=== PATIENT | female | born 1950 | race African-American/Black ===

== ENCOUNTER 2020-07-29 02:14 | Outpatient (CLI) | payer MEDICARE, MEDICAID, SELFPAY ==
[2020-07-29 17:02] LABS: SARS-CoV-2 RNA PCR Negative
== END 2020-07-29 02:15 | disposition home or self-care (01) ==
LOC: ANHCOVIDDT 02:14
PROVIDERS: PCP Surgery
DX: Z01.812 Encounter for preprocedural laboratory examination (principal); Z11.59 Encounter for screening for other viral diseases
CPT/HCPCS: 87635; C9803; U0003

== ENCOUNTER 2020-07-31 09:27 | Outpatient (CLI) | payer MEDICARE, MEDICAID, SELFPAY ==
[2020-07-29 11:23] VITALS: BMI 25.7
--- NOTE | ~2020-07-31 | XR_ITS ---
EXAMINATION: XR myelogram spine cervical DATE: 07/31/2020 12:31 INDICATION: Cervical spine instability. Neck muscle spasm into the shoulders. TECHNIQUE: Informed consent was obtained from the patient. Risks and benefits including bleeding, infection, sp inal headache and nerve root injury were discussed with the patient. The patient agreed to proceed. Time out procedure was performed. Margin Analyst radiograph was obtained. An entry site was chosen at the L 2-L3 level. A right paracentral approach was used. Standard sterile prep was done with Betadine. E ntry site was infiltrated with 3 cc 1% lidocaine. A 3.5 22G spinal needle was then inserted into th e spinal canal. Spontaneous reflux of CSF was observed confirming intrathecal positioning. 10 mL Omni paque 300 were then injected into the thecal sac with intermittent fluoroscopic observation confirmin g intrathecal administration. Frontal, lateral and oblique fluoroscopic images of the cervical spine then acquired. The patient wa s then transferred to CT scan for spiral CT of the apical spine details of which will be dictated sep arately. Following this patient was transferred to the postoperative area for 2 hours of observation . There are no immediate complications. FINDINGS: Real-time fluoroscopy demonstrates the needle at the L2-L3 level. Abdomen images demonstrate contrast filling the lumbar thecal sac with transverse lucency at the level of L4-L5 likely corresponding to anterior compression from the disc and cephalad margin of the L5 vertebral body resulting from the 5 mm anterolisthesis of L4 on L5. Subsequent images demonstrate cephalad advancement of the contrast phuc rafia on first the thoracic and into the cervical spine. Her postoperative change of prior C4-C7 anteri or spinal fusion with anterior plate and screw fixation at each level and with bone graft cages at th e intervening disc spaces. No significant central canal stenosis appreciated on the anteroposterior o blique images. The lateral image is essentially nondiagnostic due to patient positioning. To prevent further dilution of the contrast bolus in the lateral for a high quality CT myelogram is likely to th e CT scanner rather than to continue with additional attempts at repositioning for a better lateral f luoroscopic image. Mild thoracic levoscoliosis with moderate spondylosis. IMPRESSION: 1. Successful fluoro-guided lumbar puncture for cervical myelogram. 2. Expected appearance of a C4-C7 anterior spinal fusion with no evident central canal stenosis. See subsequent CT myelogram report for further detail. Reviewed, dictated and finalized at location A. IMPRESSION: 1. Successful fluoro-guided lumbar puncture for cervical myelogram. 2. Expected appearance of a C4-C7 anterior spinal fusion with no evident centra l canal stenosis. See subsequent CT myelogram report for further detail.
--- NOTE | ~2020-07-31 | CT_ITS ---
EXAMINATION: CT cervical spine w con EXAM DATE: 07/31/2020 12:14 INDICATION: Cervical spine instability. TECHNIQUE: Spiral CT of the cervical spine was performed following intrathecal injection of 10 mL Omn ipaque 300 solution. Axial images were reviewed. Coronal and sagittal reformatted images were also reviewed. The dose-length product (DLP) for this examination was 417.96 mGy-cm. The exposure was kane lored according to patient size (auto mA exposure control), and iterative reconstruction (ASIR) was u sed as additional dose reduction technique. There is no prior study for comparison. FINDINGS: There is anterior and interbody fusion C4-C7. Mild to moderate disc disease at C2-3 and C3 -4. There is good intrathecal opacification. Cord is being flattened at the C3-4 level, but there is still CSF space, contrast surrounding at both anteriorly and posteriorly, probably chronic mass effec t from disc bulge. The odontoid process is intact. The lateral masses of C1 line up with C2. Lung ap ices unremarkable. Level by level evaluation: C2-C3: Disc does not extend beyond the endplate margin. Uncovertebral joint arthropathy: Mild left. Facet joint arthropathy: Mild bilateral. Neural foraminal stenosis: No stenosis. Central canal stenosis: No stenosis. C3-C4: There is a mild to moderate diffuse disc bulge. Uncovertebral joint arthropathy: Mild to moderate right, mild left. Facet joint arthropathy: Moderate bilateral. Neural foraminal stenosis: Moderate right, mild left. Central canal stenosis: Mild to moderate . Central canal measures 7 mm in mid sagittal AP diameter . C4-C5: This level is fused. Uncovertebral joint arthropathy: Mild to moderate left, mild right. Facet joint arthropathy: Fused. Neural foraminal stenosis: Mild to moderate bilateral. Central canal stenosis: No stenosis. C5-C6: This level is fused. Uncovertebral joint arthropathy: Moderate bilateral. Facet joint arthropathy: Fused. Neural foraminal stenosis: Moderate left, mild right. Central canal stenosis: No stenosis. C6-C7: This level is fused. Uncovertebral joint arthropathy: Moderate bilateral. Facet joint arthropathy: Fused. Neural foraminal stenosis: Mild to moderate bilateral. Central canal stenosis: No stenosis. C7-T1: There is a mild diffuse disc bulge. Uncovertebral joint arthropathy: Mild to moderate. Facet joint arthropathy: Mild to moderate. Neural foraminal stenosis: Mild bilateral. Central canal stenosis: No stenosis. IMPRESSION: 1. Some cord flattening at the C3-4 level, probably from chronic mass effect of disc bulge, but stil l CSF space surrounding the cord. 2. Intact fusion C4-C7. 3. Cervical spondylosis as detailed above. Reviewed, dictated and finalized at location A. IMPRESSION: 1. Some cord flattening at the C3-4 level, probably from chronic mass effect o f disc bulge, but still CSF space surrounding the cord. 2. Intact fusion C4-C7. 3. Cervical spondylosis as detailed above.
[2020-07-31 10:54] LABS: Basophils Percent Auto 0.2 % (0.2-1.2); Eosinophils Absolute Auto 0.7 K/mm3 (0-0.3); Eosinophils Percent Auto 7.9 % (0-4.4); Hematocrit 35.8 % (37.0-47.0); Hemoglobin 11.7 g/dL (12.0-15.0); Immature Granulocyte Absolute 0.03 K/mm3 (0.00-0.031); Immature Granulocyte Percent A 0.3 % (0-0.5); Lymphocytes Absolute Auto 2.91 K/mm3 (0.9-3.2); Lymphocytes Percent Auto 33.9 % (18.3-44.2); Mean Corpuscular HGB Conc 32.7 g/dl (32-36); Mean Corpuscular Hemoglobin 29.5 pg (26-34); Mean Corpuscular Volume 90.2 fl (80-100); Mean Platelet Volume 9.1 fl (7.4-10.4); Monocytes Absolute Auto 0.5 K/mm3 (0.1-0.6); Monocytes Percent Auto 5.5 % (2.6-8.5); Neutrophils Absolute Auto 4.5 K/mm3 (1.3-6.7); Neutrophils Percent Auto 52.2 % (45.5-73.1); Platelet Count Result 354 k/mm3 (150-375); Red Blood Count 3.97 M/mm3 (4.2-5.4); Red Cell Distribution Width 13.2 % (11.5-14.5); White Blood Count 8.6 K/mm3 (4.5-10.0)
[2020-07-31 11:11] LABS: Prothrombin Time 12.5 Seconds (11.1-14.7)
[2020-07-31 12:15] VITALS: BP 108/47; PULSE 62; RESP 18; TEMP 36.4; O2SAT 100
[2020-07-31 12:26] VITALS: BP 117/63; PULSE 63; RESP 12; O2SAT 99
[2020-07-31 12:28] VITALS: BP 114/54; PULSE 63; RESP 12; O2SAT 99
[2020-07-31 12:38] LABS: Glucose Point of Care 112 (65-105)
--- NOTE | 2020-07-31 12:50 | SUR.PHASEII ---
1215; PT INTO [facility] FROM RADIOLOGY PER STRETCHER, PT LAYING ON RT SIDE. HOB FLAT. PT HAS NO IV. STATES PAIN 01/28.
--- NOTE | 2020-07-31 13:00 | SUR.PHASEII ---
1245; PT REQUESTING TYLENOL FOR BACK ACHE. [id number]; CALLED DR GARCIA REGARDING TYLENOL.
[2020-07-31] MEDS: ACETAMINOPHEN 325 MG TABLET 650 MG PO (13:09)
[2020-07-31 13:15] VITALS: BP 116/45; PULSE 64; RESP 18
[2020-07-31 14:08] VITALS: BP 108/55; PULSE 64; RESP 16
--- NOTE | 2020-07-31 14:26 | SUR.PHASEII ---
1405; PT AWAKE AND ALERT. DENIES HEADACHE. STATES READY TO GO HOME. MEETS DISCHARGE CRITERIA. 1408; CALLED DR GARCIA. LEFT MESSAGE ON UPDATE OF PT.
--- NOTE | 2020-07-31 14:28 | SUR.PHASEII ---
DR GARCIA HERE. UPDATED ON PT DISCHARGED HOME. NO HEADACHE. FEELING WELL.
== END 2020-07-31 09:28 | disposition home or self-care (01) ==
PROVIDERS: Radiology Diagnostic Radiology; PCP Physician Assistant
DX: M53.2X2 Spinal instabilities, cervical region (principal); M47.812 Spondylosis without myelopathy or radiculopathy, cervical region; M62.830 Muscle spasm of back; Z98.1 Arthrodesis status
CPT/HCPCS: 36415; 62302; 72126; 85025; 85610; Q9967

== ENCOUNTER 2023-09-14 09:56 | Outpatient (CLI) | payer MEDICARE, MEDICAID, SELFPAY | END 2023-09-14 09:57 | disposition home or self-care (01) | LOC: ANHAUDASC 09:57 | PROVIDERS: PCP Physician Assistant; Visit Provider Otolaryngology | DX: H90.3 Sensorineural hearing loss, bilateral (principal) | CPT/HCPCS: 92557; 92567 ==

== ENCOUNTER 2024-06-22 13:15 | Emergency (ER) | payer MEDICARE, MEDICAID, SELFPAY ==
--- NOTE | ~2024-06-22 | CT_ITS ---
EXAMINATION: CT abdomen pelvis w con DATE: 06/22/2024 17:58 INDICATION: Diffuse abdominal pain TECHNIQUE: Computed tomography (CT) of the abdomen and pelvis was performed with 100 mL Omnipaque-350 intravenous contrast. Automated exposure control and iterative reconstruction technique were employe d. The dose-length product was 430.46 mGy-cm. COMPARISON: None FINDINGS: Calcified right lower lobe nodule, calcified right hilar lymph node along with a few small hepatic an d splenic calcific lesions, all consistent with old granulomatous disease. Heart size is normal. Athe rosclerotic coronary artery calcifications. No pericardial or pleural effusion. Gallbladder, bilatera l adrenal glands and kidneys are normal. Small dystrophic calcification at the head of the pancreas l ikely sequela of chronic pancreatitis. There is mild colonic diverticulosis with a sigmoid predominan ce. There is no adjacent inflammatory change to suggest diverticulitis. No bowel obstruction. Bladde r is normal. The uterus is not identified and has likely been surgically resected. Bilateral adnexa a re unremarkable. No free intraperitoneal gas or fluid. No pathologically enlarged abdominal or pelvic lymphadenopathy. Symmetric bands of soft tissue density in the subcutaneous tissues of the anterior abdominal wall extending along the outline suggesting scarring or cellulitis. Moderate lumbar and low er thoracic spondylosis. Left total hip arthroplasty. IMPRESSION: 1. No acute intra-abdominal/pelvic process. Reviewed, dictated and finalized at location A.
[2024-06-22 13:19] VITALS: BP 90/43; PULSE 63; RESP 18; TEMP 36.3; O2SAT 99
--- NOTE | 2024-06-22 14:02 | ED.GENADULT ---
HPI - General Adult General Chief complaint: Abdominal Pain <Cj Chatman APRN - Last Filed: 06/22/24 14:06> Stated complaint: abd pain <Cj Chatman APRN - Last Filed: 06/22/24 14:06> Time Seen by Provider: 06/22/24 14:02 <Cj Chatman APRN - Last Filed: 06/22/24 14:06> Patient presents with nausea and generalized abdominal pain that started today. patient states she was diagnosed with a uti last tuesday and finished her cipro yesterday. patient was having CN and took magnesium citrate yesterday with some success but patient is now having symptoms. patient also states her BS have been running high. PE: A&OX3, BS non-labored, HR RRR with no murmur, generalized tenderness to abdomen, moving all extremities <Cj Chatman APRN - Last Filed: 06/22/24 14:06> Related Data Home medications: Home Medications Medication Instructions Recorded Confirmed aspirin 81 mg tablet,delayed 81 mg PO DAILY 07/29/20 07/29/20 release atorvastatin 20 mg tablet 20 mg PO HS 07/29/20 07/29/20 calcium carbonate (Calcium 600) 600 mg PO DAILY 07/29/20 07/29/20 cholecalciferol (vitamin D3) 25 75 mcg PO 2XW 07/29/20 07/29/20 mcg (1,000 unit) capsule (Vitamin D3) cyanocobalamin (vitamin B-12) 3,000 mcg PO 2XW 07/29/20 07/29/20 1,000 mcg tablet (Vitamin B-12) insulin detemir U-100 100 unit/mL 40 unit subcut BID 07/29/20 07/29/20 (3 mL) subcutaneous pen (Levemir FlexTouch U-100 Insulin) lifitegrast 5 % eye drops in a 1 drp ophthalmic (eye) DIRECTED 07/29/20 07/29/20 dropperette (Xiidra) PRN Dry Eye(S) losartan 100 mg tablet 50 mg PO BID 07/29/20 07/29/20 metformin 500 mg tablet 500 mg PO BID 07/29/20 07/29/20 metoprolol succinate 50 mg 50 mg PO DAILY 07/29/20 07/29/20 tablet,extended release 24 hr multivitamin 1 tablet PO DAILY 07/29/20 07/29/20 omeprazole 10 mg capsule,delayed 10 mg PO DAILY 07/29/20 07/29/20 release potassium chloride 10 mEq 20 meq PO QPM 07/29/20 07/29/20 tablet,extended release spironolactone 50 mg tablet 50 mg PO DAILY 07/29/20 07/29/20 tizanidine 4 mg capsule 4 mg PO Q8H PRN Spasms 07/29/20 07/29/20 <Cj Chatman APRN - Last Filed: 06/22/24 14:06> Allergies/adverse reactions: Allergies Allergy/AdvReac Type Severity Reaction Status Date / Time No Known Allergies Allergy Verified 07/22/22 10:43 <Cj Chatman APRN - Last Filed: 06/22/24 14:06> Exam Narrative: APPEARANCE: No apparent distress. Head: atraumatic. EYES: EOMI, NOSE: Atraumatic NECK: Trachea midline RESPIRATORY: No increased rate of breathing clear auscultation CARDIOVASCULAR: RRR, ABDOMINAL: Non-distended soft nontender guarding rebound no CVA tenderness MUSCULOSKELETAl: No obvious deformities NEURO: Alert. Moving 4/4 extremities SKIN:: Warm, dry. Normal color PSYCHIATRIC: Normal affect <Sarthak Amos MD - Last Filed: 06/22/24 18:38> Course Vital Signs Vital signs: Vital Signs Temperature 97.4 F L 06/22/24 13:19 Pulse Rate 63 06/22/24 13:19 Respiratory Rate 18 06/22/24 13:19 Blood Pressure 90/43 L 06/22/24 13:19 Pulse Oximetry 99 06/22/24 13:19 Temperature 97.4 F L 06/22/24 13:19 Pulse Rate 63 06/22/24 13:19 Respiratory Rate 18 06/22/24 13:19 Blood Pressure 90/43 L 06/22/24 13:19 Pulse Oximetry 99 06/22/24 13:19 <Cj Chatman APRN - Last Filed: 06/22/24 14:06> Vital Signs Temperature 97.4 F L 06/22/24 13:19 Pulse Rate 63 06/22/24 13:19 Respiratory Rate 18 06/22/24 13:19 Blood Pressure 90/43 L 06/22/24 13:19 Pulse Oximetry 99 06/22/24 13:19 Temperature 97.4 F L 06/22/24 13:19 Pulse Rate 63 06/22/24 13:19 Respiratory Rate 18 06/22/24 13:19 Blood Pressure 90/43 L 06/22/24 13:19 Pulse Oximetry 99 06/22/24 13:19 <Sarthak Amos MD - Last Filed: 06/22/24 18:38> Medical Decision Making MDM Narrative Medical decision making narrative: -Course: 73-year-old femal
[2024-06-22 14:25] LABS: Hematocrit 28.4 % (37.0-47.0); Hemoglobin 9.3 g/dL (12.0-15.0); Mean Corpuscular HGB Conc 32.7 g/dl (32-36); Mean Corpuscular Hemoglobin 34.6 pg (26-34); Mean Corpuscular Volume 105.6 fl (80-100); Mean Platelet Volume 8.5 fl (7.4-10.4); Platelet Count Result 216 k/mm3 (150-375); Red Blood Count 2.69 M/mm3 (4.2-5.4); Red Cell Distribution Width 16.7 % (11.5-14.5)
[2024-06-22 14:31] LABS: Alanine Aminotransferase 53 U/L (6-35); Alkaline Phosphatase 128 U/L (38-126); Anion Gap 9 mmol/L (4-12); Aspartate Amino Transferase 46 U/L (14-36); Bilirubin,Total 0.6 mg/dL (0.2-1.3); Blood Urea Nitrogen 11 mg/dL (7-17); Calcium 9.1 mg/dL (8.4-10.2); Carbon Dioxide 25 mmol/L (22-30); Chloride 102 mmol/L (98-107); Estimated Glomerular Filt Rate > 60; Glucose 201 mg/dL (65-110); Lactic Acid Reflex 1.2 mmol/L (0.7-2.0); Lipase 169 U/L (23-300); Potassium 4.4 mmol/L (3.4-5.0); Sodium 136 mmol/L (137-145)
[2024-06-22 15:37] LABS: Band Neutrophils Percent 4 % (0-6); Eosinophils Absolute Manual 0.45 K/mm3 (0.02-0.50); Eosinophils Percent Manual 9 % (0-4); Metamyelocytes Percent 1 %; Monocytes Percent Manual 4 % (3-9); Neutrophils Percent Manual 40 % (46-73); Total Cells Counted 100
[2024-06-22 15:38] LABS: Macrocytosis 1+ (NORMAL); Platelet Estimate Adequate (Adequate); Schistocytes None Seen
[2024-06-22 15:39] LABS: Anisocytosis 1+
[2024-06-22] MEDS: SODIUM CHLORIDE 0.9% IV 1,000 ML 999 ML IV CONT ×2 (17:20→17:21)
[2024-06-22] MEDS: ONDANSETRON INJ 4 MG/2 ML VIAL IV PUSH (17:22)
[2024-06-22] MEDS: FAMOTIDINE 20 MG/2 ML VIAL IV PUSH (17:23)
[2024-06-22] MEDS: DICYCLOMINE HCL 10 MG CAPSULE 20 MG PO (17:24)
[2024-06-22 18:32] LABS: Add Urine Microscopic? NO; Appearance Urine Clear (Clear); Bilirubin Urine Negative (Negative); Blood Urine Negative (Negative); Color Urine Yellow (Yellow); Glucose Urine UA Negative (Negative); Ketones Urine Negative (Negative); Leukocyte Esterase Ur Negative LEU/UL (Negative); Nitrate Urine Negative (Negative); Protein Urine Negative (Negative); Specific Grav Ur 1.016 (1.001-1.035); Urobilinogen Urine 0.2 mg/dL (<2.0); pH Urine 6.5 (5.0-9.0)
[2024-06-22 19:00] VITALS: PULSE 64; RESP 18
[2024-06-22 19:15] VITALS: PULSE 64; RESP 19
== END 2024-06-22 19:37 | disposition home or self-care (01) ==
PROVIDERS: Nurse Practitioner Family; Emergency Provider Emergency Medicine; PCP Internal Medicine Gastroenterology
DX: R10.84 Generalized abdominal pain (principal); E11.9 Type 2 diabetes mellitus without complications; Z79.82 Long term (current) use of aspirin; Z79.4 Long term (current) use of insulin; Z79.84 Long term (current) use of oral hypoglycemic drugs; Z79.899 Other long term (current) drug therapy
CPT/HCPCS: 36415; 74177; 80053; 81003; 83605; 83690; 85025; 96361; 96374; 96375; 99284; A9270; J2405; J7030; Q9967

== ENCOUNTER 2024-08-15 07:19 | Emergency (ER) | payer MEDICARE, MEDICAID, SELFPAY ==
[2024-08-15] VITALS (22 sets, daily range): BP systolic 123–157; BP diastolic 63–72; PULSE 78; RESP 16; TEMP 37; O2SAT 97–100
--- NOTE | ~2024-08-15 | CT_ITS ---
CT abdomen pelvis wo con Ordering provider: Sarthak Amos MD History: 73 years Female with . Recurrent uti . Comparison: April 22, 2024 Technique: CT abdomen and pelvis without IV and without oral contrast. Automated exposure control and iterative reconstruction technique were employed. The dose-length product was 382.23 mGy-cm. Findings: VISUALIZED LOWER CHEST: Dependent atelectatic changes. Probable UPPER ABDOMINAL ORGANS: Liver: Normal. Gallbladder: Normal. Spleen: Normal. Stomach/duodenum: Normal. Pancreas: Normal. Adrenals: Normal. Kidneys: Tiny stone in the medial aspect of the left kidney midpole. Obstructive changes. PELVIC ORGANS: The bladder is not well-demonstrated due to artifacts. BOWEL AND MESENTERY: Colon: Diverticulosis with no evidence of diverticulitis. Fecal material noted in the colon suggestiv e of patient.The appendix is not well demonstrated. Small Bowel: Normal. No obstruction. Peritoneum/mesentery: No free air or free fluid. No mesenteric lymphadenopathy. RETROPERITONEUM: Mild atheromatous disease of the abdominal aorta. No retroperitoneal lymphadenopat hy. MUSCULOSKELETAL: Superficial soft tissues: Thickening of the anterior abdominal wall skin in the area of the pelvis is seen bilaterally. Clinical correlation advised. Otherwise, The superficial soft tissues are normal. Bones: Age appropriate degenerative changes of the spine. Left hip arthroplasty. Pubic symphysitis. B ilateral sacroiliitis. Levoscoliosis. IMPRESSION: 1. Tiny stone in the left kidney. 2. Constipation. 3. No evidence of appendicitis, diverticulitis or intestinal obstruction Reviewed, dictated and finalized at location A.
--- NOTE | ~2024-08-15 | XR_ITS ---
EXAMINATION: XR chest 1V DATE: 08/15/2024 08:30 INDICATION: Cough, fever, nausea and vomiting TECHNIQUE: frontal view of the chest was obtained. COMPARISON: None FINDINGS: The lungs are clear with no focal airspace opacities, pulmonary edema, pleural effusion or pneumothor ax. The cardiomediastinal silhouette is normal. Plain screw fixation for lower cervical anterior spin al fusion. Mild S-shaped thoracolumbar scoliosis with moderate to severe spondylosis. 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 IMPRESSION: 1. No acute cardiopulmonary disease. Reviewed, dictated and finalized at location A.
--- NOTE | 2024-08-15 07:46 | ECG_ITS ---
Test Date: 2024-08-15 07:52:31 Measurements Intervals [place] Rate: 70 P: 52 IN: 145 QRS: 54 QRSD: 84 T: 52 QT: 363 QTc: 392 Interpretive Statements SINUS RHYTHM NONSPECIFIC T-WAVE ABNORMALITY- ANTERIOR LEADS BASELINE ARTIFACT- I, III, AVL BORDERLINE ECG No previous ECG available for comparison Electronically Signed On 08-15-2024 08:31:57 CDT by Luis Gregg D.O.
[2024-08-15 08:04] LABS: Add Urine Microscopic? YES; Appearance Urine Cloudy (Clear); Bacteria Urine 4+ /hpf; Bilirubin Urine Negative (Negative); Blood Urine 3+ (Negative); Color Urine Yellow (Yellow); Glucose Urine UA Negative (Negative); Ketones Urine Negative (Negative); Leukocyte Esterase Ur Negative LEU/UL (Negative); Need Manual Microscopic Reviewed; Nitrate Urine Positive (Negative); Non Pathogenic Casts 0-2; Protein Urine 3+ mg/dL (Negative); RBC Urine >100 /hpf (0-2); Specific Grav Ur 1.014 (1.001-1.035); Squamous Epithelial Cell Urine None Seen /hpf (Few); WBC Urine >100 /hpf (0-3); pH Urine 6.5 (5.0-9.0)
[2024-08-15 08:45] LABS: Hematocrit 30.5 % (37.0-47.0); Hemoglobin 10.2 g/dL (12.0-15.0); Mean Corpuscular HGB Conc 33.4 g/dl (32-36); Mean Corpuscular Hemoglobin 35.1 pg (26-34); Mean Corpuscular Volume 104.8 fl (80-100); Mean Platelet Volume 8.6 fl (7.4-10.4); Platelet Count Result 185 k/mm3 (150-375); Red Blood Count 2.91 M/mm3 (4.2-5.4); Red Cell Distribution Width 16.6 % (11.5-14.5); White Blood Count 9.4 K/mm3 (4.5-10.0)
[2024-08-15 08:58] LABS: Alanine Aminotransferase 57 U/L (6-35); Albumin Level 3.9 g/dL (3.5-5.1); Alkaline Phosphatase 112 U/L (38-126); Anion Gap 8 mmol/L (4-12); Aspartate Amino Transferase 58 U/L (14-36); Bilirubin,Total 0.4 mg/dL (0.2-1.3); Blood Urea Nitrogen 13 mg/dL (7-17); Calcium 9.7 mg/dL (8.4-10.2); Carbon Dioxide 25 mmol/L (22-30); Chloride 105 mmol/L (98-107); Estimated CRCL calculation 46 ml/min; Estimated Glomerular Filt Rate > 60; Glucose 119 mg/dL (65-110); Lipase 209 U/L (23-300); Sodium 138 mmol/L (137-145)
[2024-08-15 09:08] LABS: Band Neutrophils Percent 5 % (0-6); Basophils Absolute Manual 0.09 K/mm3 (0.0-0.1); Basophils Percent Manual 1 % (0-1); Eosinophils Absolute Manual 0.09 K/mm3 (0.02-0.50); Eosinophils Percent Manual 1 % (0-4); Lymphocytes Absolute Manual 2.91 K/mm3 (1.1-4.5); Lymphocytes Percent Manual 31 % (18-44); Monocytes Absolute Manual 0.28 K/mm3 (0.1-0.90); Monocytes Percent Manual 3 % (3-9); Neutrophils Absolute Manual 6.01 K/mm3 (1.7-7.2); Neutrophils Percent Manual 59 % (46-73); Platelet Estimate Adequate (Adequate); Total Cells Counted 100
[2024-08-15 09:09] LABS: Anisocytosis 1+; Hypochromasia 1+; Macrocytosis 1+ (NORMAL); Ovalocytes 1+; Schistocytes None Seen
[2024-08-15 09:22] LABS: Influenza A QL RT-PCR Negative (Negative); Influenza B QL RT-PCR Negative (Negative); RSV RNA, RT-PCR Negative (Negative); SARS-CoV-2 RNA PCR Negative (Negative)
[2024-08-15] MEDS: HYDROmorphone HCL INJ (*CRX) 1 MG/ML SYR 0.5 MG IV PUSH (09:28)
--- NOTE | 2024-08-15 11:20 | ED.GENADULT ---
HPI - General Adult General Chief complaint: Urogenital-Female Stated complaint: lower abd pain Time Seen by Provider: 08/15/24 07:23 History of Present Illness HPI narrative: This is a 73-year-old female presenting with lower abdominal pain. Patient has been having urinary urgency frequency and dysuria for the last 2 days. She has also had an episode of nausea and vomiting and some lower abdominal pain. She denies any chest pain difficulty breathing. No falls. Patient has had several UTIs over the last several months. Related Data Home Medications Medication Instructions Recorded Confirmed aspirin 81 mg tablet,delayed 81 mg PO DAILY 07/29/20 07/29/20 release atorvastatin 20 mg tablet 20 mg PO HS 07/29/20 07/29/20 calcium carbonate (Calcium 600) 600 mg PO DAILY 07/29/20 07/29/20 cholecalciferol (vitamin D3) 25 75 mcg PO 2XW 07/29/20 07/29/20 mcg (1,000 unit) capsule (Vitamin D3) cyanocobalamin (vitamin B-12) 3,000 mcg PO 2XW 07/29/20 07/29/20 1,000 mcg tablet (Vitamin B-12) insulin detemir U-100 100 unit/mL 40 unit subcut BID 07/29/20 07/29/20 (3 mL) subcutaneous pen (Levemir FlexTouch U-100 Insulin) lifitegrast 5 % eye drops in a 1 drp ophthalmic (eye) DIRECTED 07/29/20 07/29/20 dropperette (Xiidra) PRN Dry Eye(S) losartan 100 mg tablet 50 mg PO BID 07/29/20 07/29/20 metformin 500 mg tablet 500 mg PO BID 07/29/20 07/29/20 metoprolol succinate 50 mg 50 mg PO DAILY 07/29/20 07/29/20 tablet,extended release 24 hr multivitamin 1 tablet PO DAILY 07/29/20 07/29/20 omeprazole 10 mg capsule,delayed 10 mg PO DAILY 07/29/20 07/29/20 release potassium chloride 10 mEq 20 meq PO QPM 07/29/20 07/29/20 tablet,extended release spironolactone 50 mg tablet 50 mg PO DAILY 07/29/20 07/29/20 tizanidine 4 mg capsule 4 mg PO Q8H PRN Spasms 07/29/20 07/29/20 Allergies Allergy/AdvReac Type Severity Reaction Status Date / Time No Known Allergies Allergy Verified 08/15/24 07:25 Exam Narrative: APPEARANCE: No apparent distress. Head: atraumatic. EYES: EOMI, NOSE: Atraumatic NECK: Trachea midline RESPIRATORY: No increased rate of breathing clear to auscultation CARDIOVASCULAR: RRR, no peripheral edema ABDOMINAL: Soft nontender no guarding or rebound no CVA tenderness MUSCULOSKELETAl: No obvious deformities NEURO: Alert. Moving 4/4 extremities SKIN:: Warm, dry. Normal color PSYCHIATRIC: Normal affect Course Vital Signs Vital signs: Vital Signs Temperature 98.6 F 08/15/24 07:21 Pulse Rate 78 08/15/24 07:21 Respiratory Rate 16 08/15/24 07:21 Blood Pressure 157/71 H 08/15/24 07:21 Pulse Oximetry 100 08/15/24 07:21 Oxygen Delivery Room Air 08/15/24 07:21 Temperature 98.6 F 08/15/24 07:21 Pulse Rate 78 08/15/24 07:21 Respiratory Rate 16 08/15/24 07:21 Blood Pressure 140/68 08/15/24 09:01 Pulse Oximetry 99 08/15/24 09:01 Oxygen Delivery Room Air 08/15/24 07:21 Medical Decision Making [facility] Narrative Medical decision making narrative: -Course: 73-year-old female presenting with urinary symptoms. Urine indicative of infection. Laboratory studies and imaging are unremarkable. Vital signs are stable. She was given a dose of ceftriaxone, fluid resuscitation pain control. On re-evaluation she is resting comfortably. She was able to walk around the emergency department with a steady gait. The patient is requesting admission unfortunately there is no indication for admission for a simple UTI. Patient will be discharged home on cefdinir. Given return precautions. -DDX includes but is not limited to: UTI pyelo infected stone sepsis dehydration -Independent interpretation of studies: White count 9.4. Hemoglobin 10.2 metabolic panel unremarkable urine indicative infection. Culture sent. CT reviewed Viral swabs negative Independent EKG interpretation: Rhythm [sinus], Rate [70], [place] -[normal], [place] -[normal], QRS [narrow], QTC [normal], T waves -[
[2024-08-15] MEDS: PHENAZOPYRIDINE HCL 100 MG TABLET 200 MG PO (11:30)
== END 2024-08-15 11:55 | disposition home or self-care (01) ==
PROVIDERS: Emergency Provider Emergency Medicine; PCP Internal Medicine Gastroenterology
DX: N39.0 Urinary tract infection, site not specified (principal); Z20.822 Contact with and (suspected) exposure to COVID-19; Z79.82 Long term (current) use of aspirin; Z79.4 Long term (current) use of insulin; Z79.84 Long term (current) use of oral hypoglycemic drugs; Z79.899 Other long term (current) drug therapy; R94.31 Abnormal electrocardiogram [ECG] [EKG]
CPT/HCPCS: 36415; 71045; 74176; 80053; 81001; 83690; 85025; 87077; 87086; 87088; 87186; 87637; 93005; 96365; 96375; 99284; A9270; J0696; J1170

== ENCOUNTER 2024-08-30 12:03 | Inpatient (IN) | payer MEDICARE, MEDICAID, SELFPAY ==
[2024-08-30] VITALS (10 sets, daily range): BP systolic 102–116; BP diastolic 51–64; PULSE 58–65; RESP 14–18; TEMP 36.7–36.9; O2SAT 99–100; BMI 24.5
--- NOTE | ~2024-08-30 | CT_ITS ---
CT of the Abdomen and Pelvis: Indication: Flank pain, UTI Technique: 2.5 mm axial scans were obtained through the abdomen and pelvis following intravenous adm inistration of 100 cc of Omnipaque 350. Dose reduction technique was used on this scan by utilizing a utomated exposure control and iterative reconstruction technique. The dose-length product (DLP) was 3 72.31 mGy-cm. COMPARISON: 08/15/2024 Findings: Scans through the lung bases noted minimal bilateral pleural effusions. The liver, spleen, pancreas, gallbladder, adrenals and kidneys are within normal limits. There are at herosclerotic calcifications of the aorta. No lymphadenopathy. No bowel obstruction or bowel wall thickening. There is no evidence to suggest acute appendicitis. Images through the pelvis are degraded by streak artifact from left hip arthroplasty. Urinary bladder unremarkable. No pelvic mass seen. No ascites. Impression: Minimal bilateral pleural effusions. No other significant findings. Reviewed, dictated and finalized at [facility]. Impression: Minimal bilateral pleural effusions. No other significant findings.
[2024-08-30 12:30] LABS: Hematocrit 26.7 % (37.0-47.0); Hemoglobin 9.3 g/dL (12.0-15.0); Mean Corpuscular HGB Conc 34.8 g/dl (32-36); Mean Corpuscular Hemoglobin 35.1 pg (26-34); Mean Corpuscular Volume 100.8 fl (80-100); Mean Platelet Volume 8.5 fl (7.4-10.4); Platelet Count Result 203 k/mm3 (150-375); Red Blood Count 2.65 M/mm3 (4.2-5.4); Red Cell Distribution Width 15.9 % (11.5-14.5); White Blood Count 14.1 K/mm3 (4.5-10.0)
--- NOTE | 2024-08-30 12:31 | ED.FEMALEGU ---
HPI - Female Genitourinary General Chief complaint: Urogenital-Female <Giovana Hrutado PA-C - Last Filed: 08/30/24 16:09> Stated complaint: UTI sx <Giovana Hurtado PA-C - Last Filed: 08/30/24 16:09> Time Seen by Provider: 08/30/24 12:07 <Giovana Hurtado PA-C - Last Filed: 08/30/24 16:09> Source: patient <PETE Solomon Last Filed: 08/30/24 16:09> Mode of arrival: EMS <PETE Solomon Last Filed: 08/30/24 16:09> Limitations: no limitations <PETE Solomon Last Filed: 08/30/24 16:09> History of Present Illness HPI Narrative: This is a 73-year-old female that presents to the emergency department for ongoing urinary symptoms. Reports she has been treated with 2 rounds of antibiotics with little relief. She has had ongoing bladder discomfort, nausea, decreased appetite. Also reports flank pain. Denies fevers or vomiting. <Giovana Hurtado PA-C - Last Filed: 08/30/24 16:09> Related Data Home medications: Home Medications Medication Instructions Recorded Confirmed aspirin 81 mg tablet,delayed 81 mg PO DAILY 07/29/20 07/29/20 release atorvastatin 20 mg tablet 20 mg PO HS 07/29/20 07/29/20 calcium carbonate (Calcium 600) 600 mg PO DAILY 07/29/20 07/29/20 cholecalciferol (vitamin D3) 25 75 mcg PO 2XW 07/29/20 07/29/20 mcg (1,000 unit) capsule (Vitamin D3) cyanocobalamin (vitamin B-12) 3,000 mcg PO 2XW 07/29/20 07/29/20 1,000 mcg tablet (Vitamin B-12) insulin detemir U-100 100 unit/mL 40 unit subcut BID 07/29/20 07/29/20 (3 mL) subcutaneous pen (Levemir FlexTouch U-100 Insulin) lifitegrast 5 % eye drops in a 1 drp ophthalmic (eye) DIRECTED 07/29/20 07/29/20 dropperette (Xiidra) PRN Dry Eye(S) losartan 100 mg tablet 50 mg PO BID 07/29/20 07/29/20 metformin 500 mg tablet 500 mg PO BID 07/29/20 07/29/20 metoprolol succinate 50 mg 50 mg PO DAILY 07/29/20 07/29/20 tablet,extended release 24 hr multivitamin 1 tablet PO DAILY 07/29/20 07/29/20 omeprazole 10 mg capsule,delayed 10 mg PO DAILY 07/29/20 07/29/20 release potassium chloride 10 mEq 20 meq PO QPM 07/29/20 07/29/20 tablet,extended release spironolactone 50 mg tablet 50 mg PO DAILY 07/29/20 07/29/20 tizanidine 4 mg capsule 4 mg PO Q8H PRN Spasms 07/29/20 07/29/20 <Giovana Hurtado PA-C - Last Filed: 08/30/24 16:09> Allergies/Adverse reactions: Allergies Allergy/AdvReac Type Severity Reaction Status Date / Time No Known Allergies Allergy Verified 08/15/24 07:25 <Giovana Hurtado PA-C - Last Filed: 08/30/24 16:09> Review of Systems Review of Systems: CONSTITUTIONAL: Denies fever GASTROINTESTINAL: Reports abdominal pain, nausea. Denies vomiting, or diarrhea. GENITOURINARY: Reports dysuria. Denies hematuria. MUSCULOSKELETAL: Reports back pain <Giovana Hurtado PA-C - Last Filed: 08/30/24 16:09> All systems reviewed & are unremarkable except as noted in HPI and below <Giovana Hurtado PA-C - Last Filed: 08/30/24 16:09> [facility] Past Medical History Medical History: Medical History (Updated 08/30/24 @ 16:01 by Giovana Hurtado PA-C) Diverticulitis Glaucoma Hyperlipidemia Hypertension Type 2 diabetes mellitus <Giovana Hurtado PA-C - Last Filed: 08/30/24 16:09> Surgical History Surgical History: Surgical History (Updated 08/30/24 @ 14:37 by Casi Mullen PA-C) History of bilateral cataract extraction History of cardiac catheterization (11/2019) ?negative? per patient report History of fusion of cervical spine (2019) C4-C7 History of hysterectomy History of total left hip arthroplasty <Giovana Hurtado PA-C - Last Filed: 08/30/24 16:09> Social History Social History: Social History (Updated 08/30/24 @ 14:38 by Casi Mullen PA-C) Social History: Surrogate medical decision maker: Code status: Full code. Substance use: never <Giovana Hurtado PA-C - Last Filed: 08/30/24 16:09> Exam Narrative: GEN
[2024-08-30 12:38] LABS: Add Urine Microscopic? YES; Appearance Urine Cloudy (Clear); Bacteria Urine 4+ /hpf; Bilirubin Urine Negative (Negative); Blood Urine Negative (Negative); Color Urine Yellow (Yellow); Glucose Urine UA Negative (Negative); Ketones Urine Negative (Negative); Leukocyte Esterase Ur 3+ LEU/UL (Negative); Nitrate Urine Positive (Negative); Protein Urine Negative (Negative); RBC Urine 0-2 /hpf (0-2); Specific Grav Ur 1.006 (1.001-1.035); Squamous Epithelial Cell Urine None Seen /hpf (Few); Urobilinogen Urine 0.2 mg/dL (<2.0); WBC Urine >100 /hpf (0-3)
[2024-08-30 12:43] LABS: Alanine Aminotransferase 29 U/L (6-35); Alkaline Phosphatase 93 U/L (38-126); Anion Gap 7 mmol/L (4-12); Aspartate Amino Transferase 37 U/L (14-36); Bilirubin,Total 0.4 mg/dL (0.2-1.3); Blood Urea Nitrogen 12 mg/dL (7-17); Calcium 9.5 mg/dL (8.4-10.2); Carbon Dioxide 27 mmol/L (22-30); Chloride 94 mmol/L (98-107); Estimated CRCL calculation 37 ml/min; Estimated Glomerular Filt Rate > 60; Glucose 145 mg/dL (65-110); Potassium 4.4 mmol/L (3.4-5.0); Sodium 128 mmol/L (137-145)
[2024-08-30 12:56] LABS: Band Neutrophils Percent 4 % (0-6); Eosinophils Absolute Manual 0.14 K/mm3 (0.02-0.50); Eosinophils Percent Manual 1 % (0-4); Lymphocytes Absolute Manual 4.08 K/mm3 (1.1-4.5); Lymphocytes Percent Manual 29 % (18-44); Monocytes Absolute Manual 0.98 K/mm3 (0.1-0.90); Monocytes Percent Manual 7 % (3-9); Neutrophils Absolute Manual 8.88 K/mm3 (1.7-7.2); Neutrophils Percent Manual 59 % (46-73)
[2024-08-30 12:57] LABS: Platelet Estimate Adequate (Adequate); Schistocytes None Seen
[2024-08-30 12:58] LABS: Anisocytosis 1+; Ovalocytes 1+
[2024-08-30] MEDS: SODIUM CHLORIDE 0.9% IV 500 ML 999 ML IV CONT (13:17)
[2024-08-30] MEDS: ONDANSETRON INJ 4 MG/2 ML VIAL IV PUSH (13:17)
[2024-08-30] MEDS: MEROPENEM 1 GM/NS 100 ML 1 GM/100 ML BAG IVPB ×2 (13:45→20:53)
--- NOTE | 2024-08-30 14:15 | PM.IMHP ---
H&P: HPI History of Present Illness Date/Time: 08/30/24 14:15 Chief Complaint: Urinary symptoms. Narrative: This is a pleasant 73-year-old female with history of urinary tract infections, hypertension, hyperlipidemia, and type 2 diabetes mellitus who presented to the emergency department via EMS from home for evaluation of urinary symptoms. The patient provides the following history. She was seen in the ED on 08/15/2024 with a 2 day history of urinary urgency, frequency, and dysuria and was diagnosed with a urinary tract infection for which she was prescribed cefdinir. She was given a course of ciprofloxacin after she completed the cefdinir as her symptoms had not resolved. Unfortunately she continues to have urinary symptoms and now has aching pain in the low back and abdomen. She also reports subjective fever, decrease in appetite, and nausea. She denies vomiting, diarrhea, and cold and flu symptoms. In the ED: She was afebrile on arrival with stable vital signs. Labs were significant for a WBC count of 14.1, hemoglobin 9.3, hematocrit 26.7%, MCV 100.3, sodium 128, potassium 94, glucose 145. Urinalysis was nitrate and leukocyte esterase positive with greater than 100 WBC and 4+ bacteria. CT of the abdomen pelvis showed minimal bilateral pleural effusions but no other significant findings. Urine culture obtained on the day of her ED visit grew out ESBL Escherichia coli and she has been started on meropenem and is being admitted in this setting for further treatment. Review of Systems Review of Systems: 12 systems were reviewed and are negative except for as per HPI. [facility] Past Medical History Medical History Diverticulitis Glaucoma Hyperlipidemia Hypertension Type 2 diabetes mellitus Surgical History Surgical History History of bilateral cataract extraction History of cardiac catheterization (11/2019) ?negative? per patient report History of fusion of cervical spine (2018) C4-C7 History of hysterectomy History of total left hip arthroplasty Social History Social History (Updated 08/30/24 @ 20:06 by Casi Mullen PA-C) Social History: Surrogate medical decision maker: Jaime Almonte, son ([phone]). Code status: Full code. Smoking status: Former smoker Tobacco type: cigarettes Smoking end date: 11/21/94 Alcohol intake: never Substance use: never Do You Feel Safe in your Home?: Yes Lack of Transportation: No Lack of Food: Never True Current Housing: Decline to Answer Concerned About Future Housing: Decline to Answer Difficulty Paying Gas/Electric Bills: Decline to Answer Difficulty Paying for Meds: Decline to Answer Currently Unemployed: Decline to Answer Education: Decline to Answer Difficulty w/ Childcare or Family Care: Decline to Answer Spiritual care concerns: No Meds Home Medications and Allergies Home Medications Medication Instructions Recorded Confirmed Type aspirin 81 mg tablet,delayed 81 mg PO DAILY 07/29/20 08/30/24 History release calcium carbonate (Calcium 600) 600 mg PO DAILY 07/29/20 08/30/24 History cholecalciferol (vitamin D3) 25 75 mcg PO 2XW 07/29/20 08/30/24 History mcg (1,000 unit) capsule (Vitamin D3) cyanocobalamin (vitamin B-12) 3,000 mcg PO 2XW 07/29/20 08/30/24 History 1,000 mcg tablet (Vitamin B-12) insulin detemir U-100 100 unit/mL 25 unit subcut BID 07/29/20 08/30/24 History (3 mL) subcutaneous pen (Levemir FlexTouch U-100 Insulin) lifitegrast 5 % eye drops in a 1 drp ophthalmic (eye) DIRECTED 07/29/20 08/30/24 History dropperette (Xiidra) PRN Dry Eye(S) losartan 100 mg tablet 25 mg PO BID 07/29/20 08/30/24 History multivitamin 1 tablet PO DAILY 07/29/20 08/30/24 History spironolactone 50 mg tablet 50 mg PO DAILY 07/29/20 08/30/24 History carvedilol 25 mg tablet 25 mg PO BID 08/30/24
[2024-08-30 14:56] LABS: Immature Reticulocyte Fraction 28.3 % (3.0-15.9); Reticulocyte Hemoglobin Conten 39.6 pg (28.2-36.6); Reticulocyte Percent 2.03 % (0.7-4.3); Reticulocytes Absolute 0.06 10^6/uL (0.02-0.10)
[2024-08-30 15:37] LABS: Iron 161 ug/dL (37-170)
[2024-08-30 15:43] LABS: Hemoglobin A1C 6.8 % (<5.7)
[2024-08-30 15:46] LABS: Percent Iron Saturation 43 % (20-50)
[2024-08-30 16:09] LABS: Thyroid Stimulating Hormone Reflex 0.648 uIU/mL (0.465-4.68)
[2024-08-30 16:40] LABS: Folic Acid 6.2 ng/mL (2.76->20); Vitamin B12 > 1000.0 pg/mL (239-931)
[2024-08-30 17:09] LABS: Creatinine Urine 13.2 mg/dL
[2024-08-30 17:15] LABS: Glucose Point of Care 116 mg/dl (65-105)
[2024-08-30 17:22] LABS: Sodium Urine Random 25 meq/L
[2024-08-30] MEDS: ACETAMINOPHEN 325 MG TABLET 650 MG PO (17:52)
--- NOTE | 2024-08-30 19:33 | PC.NURSE ---
Main school laboratory technician February verified that additional labs(osmolality and urea random) can and have been added to specimen received earlier today.
[2024-08-30 19:43] LABS: Glucose Point of Care 137 mg/dl (65-105)
[2024-08-30 20:20] LABS: Urea Random Urine 175 MG/DL
[2024-08-30 20:40] LABS: Anion Gap 9 mmol/L (4-12); Blood Urea Nitrogen 12 mg/dL (7-17); Carbon Dioxide 24 mmol/L (22-30); Chloride 98 mmol/L (98-107); Estimated CRCL calculation 37 ml/min; Estimated Glomerular Filt Rate > 60; Glucose 131 mg/dL (65-110); Potassium 4.4 mmol/L (3.4-5.0); Sodium 131 mmol/L (137-145)
[2024-08-30] MEDS: HYDROcodone/acetaminophen (*CRX) 5-325 MG TABLET 1 TAB PO (20:53)
[2024-08-30] MEDS: SODIUM CHLORIDE 0.9% IV 1,000 ML 80 ML IV CONT (20:53)
[2024-08-30] MEDS: SERTRALINE HCL 50 MG TABLET 100 MG PO (20:54)
[2024-08-30] MEDS: WATER FOR IRRIGATION, STERILE 1,000 ML BOTTLE 1000 ML (20:55)
[2024-08-31] VITALS (9 sets, daily range): BP systolic 111–135; BP diastolic 47–58; PULSE 65–76; RESP 12–18; TEMP 36.4–36.7; O2SAT 98–100; BMI 24.7
[2024-08-31 03:43] LABS: Glucose Point of Care 115 mg/dl (65-105)
[2024-08-31] MEDS: INSULIN GLARGINE (*BKC) 100 UNITS/ML 25 UNITS SUB-Q ×3 (05:11→22:57)
[2024-08-31 05:17] LABS: Hematocrit 26.7 % (37.0-47.0); Hemoglobin 8.8 g/dL (12.0-15.0); Mean Corpuscular Hemoglobin 34.2 pg (26-34); Mean Corpuscular Volume 103.9 fl (80-100); Mean Platelet Volume 8.5 fl (7.4-10.4); Platelet Count Result 210 k/mm3 (150-375); Red Blood Count 2.57 M/mm3 (4.2-5.4); Red Cell Distribution Width 16.7 % (11.5-14.5); White Blood Count 12.6 K/mm3 (4.5-10.0)
[2024-08-31 05:33] LABS: Anion Gap 6 mmol/L (4-12); Blood Urea Nitrogen 14 mg/dL (7-17); Carbon Dioxide 26 mmol/L (22-30); Chloride 102 mmol/L (98-107); Estimated CRCL calculation 41 ml/min; Estimated Glomerular Filt Rate > 60; Glucose 125 mg/dL (65-110); Potassium 4.1 mmol/L (3.4-5.0); Sodium 134 mmol/L (137-145)
[2024-08-31 05:44] LABS: Band Neutrophils Percent 5 % (0-6); Eosinophils Absolute Manual 0.12 K/mm3 (0.02-0.50); Eosinophils Percent Manual 1 % (0-4); Lymphocytes Absolute Manual 4.28 K/mm3 (1.1-4.5); Monocytes Percent Manual 4 % (3-9); Neutrophils Absolute Manual 7.68 K/mm3 (1.7-7.2); Neutrophils Percent Manual 56 % (46-73); Total Cells Counted 100
[2024-08-31 05:45] LABS: Anisocytosis 1+; Atypical Lymphocytes Present; Hypochromasia 1+; Platelet Estimate Adequate (Adequate); Poikilocytosis 1+; Schistocytes None Seen
[2024-08-31 08:58] LABS: Glucose Point of Care 112 mg/dl (65-105)
[2024-08-31] MEDS: MULTIVITAMINS THERAPEUTIC TAB (*BKC) 1 TABLET PO (09:04)
[2024-08-31] MEDS: CALCIUM CARBONATE (OSCAL) 500 MG TABLET PO (09:04)
[2024-08-31] MEDS: ASPIRIN 81 MG ENTERIC TABLET PO (09:04)
[2024-08-31] MEDS: EZETIMIBE 10 MG TABLET PO (09:04)
[2024-08-31] MEDS: MEROPENEM 1 GM/NS 100 ML 1 GM/100 ML BAG IVPB ×2 (09:04→22:57)
[2024-08-31] MEDS: LOSARTAN POTASSIUM 25 MG TABLET PO (09:04)
[2024-08-31] MEDS: FAMOTIDINE 10 MG TABLET PO (09:04)
[2024-08-31] MEDS: hydrALAZINE HCL 50 MG TABLET PO (09:04)
[2024-08-31] MEDS: MONTELUKAST SODIUM 10 MG TABLET PO (09:04)
[2024-08-31] MEDS: carvediloL 25 MG TABLET PO ×2 (09:06→22:58)
[2024-08-31] MEDS: SODIUM CHLORIDE 0.9% IV 1,000 ML 80 ML IV CONT (09:18)
[2024-08-31] MEDS: ENOXAPARIN 40 MG/0.4 ML SYRINGE SUB-Q (09:21)
--- NOTE | 2024-08-31 10:08 | PM.IMPN ---
Progress Note: A&P Assessment and Plan (1) Urinary tract infection due to extended-spectrum beta lactamase (ESBL) producing Escherichia coli: Code(s): N39.0 - Urinary tract infection, site not specified; B96.29 - Other Escherichia coli [E. coli] as the cause of diseases classified elsewhere; Z16.12 - Extended spectrum beta lactamase (ESBL) resistance Status: Acute Assessment and Plan: Patient reports having UTI's since the end of May, despite completing courses of cefdinir and ciprofloxacin. Urine culture obtained at the time for ED visit on 08/15/2024 grew out ESBL Escherichia coli resistant to cephalosporins and fluoroquinolones. She has been started on meropenem per antibiotic stewardship recommendations. Patient is receiving Meropenem 1 gm IVPB q12. NS @ 125 ml/hr. Drink water Urine and blood cultures pending. (2) Hyponatremia: Code(s): E87.1 - Hypo-osmolality and hyponatremia Status: Acute Assessment and Plan: sodium 134 (3) Macrocytic anemia: Code(s): D53.9 - Nutritional anemia, unspecified Status: Acute Assessment and Plan: Hemoglobin 8.8, hematocrit 26.7 (4) Type 2 diabetes mellitus: Code(s): E11.9 - Type 2 diabetes mellitus without complications Status: Acute Assessment and Plan: Hold metformin as she received IV contrast. Sliding scale insulin, long acting insulin, Accu-Cheks, and hypoglycemic protocol. (5) Hypertension: Code(s): I10 - Essential (primary) hypertension Status: Acute Assessment and Plan: Blood pressure 112/49 (6) Constipation: Code(s): K59.00 - Constipation, unspecified Status: Acute Assessment and Plan: Add Miralax 17 gm PO daily PRN and Dulcolax 5 mg PO daily PRN. Encourage water intake. (7) Dizziness: Code(s): R42 - Dizziness and giddiness Status: Acute Assessment and Plan: Check orthostatics. NS@ 125 ml/hr. Subjective Date/time seen: 08/31/24 10:08 Interval history: Patient denies chest pain, palpitations, headache, burning with urination, nausea, or vomiting. Patient reports last bowel movement was 3 days ago and she would like medication ordered for her bowels. Patient reports eating and drinking well. Patient reports some dizziness when getting up. Review of Systems Review of Systems: All systems reviewed & are unremarkable except as noted in HPI and below Exam Const: General: comfortable and no acute distress Neck: Neck: supple Resp: Effort & Inspection: normal respiratory effort Auscultation: clear to auscultation bilaterally Cardio: Rate: regular rate Rhythm: regular rhythm GI: GI Palp: Yes Soft to palpation Auscultation: normal bowel sounds Other: No CVA tenderness. Skin: General skin exam: no rashes or lesions noted Neuro: Speech: normal speech Extrem: General: normal to inspection Psych: Affect: normal affect Objective Data Vital Signs Vital Signs: Vital Signs - 24 hr 08/30/24 12:04 08/30/24 14:29 08/30/24 13:00 Temperature 98.1 F Pulse Rate 65 58 L Respiratory Rate 16 18 Blood Pressure 116/64 114/60 Pulse Oximetry 100 99 Oxygen Delivery Room Air 08/30/24 14:00 08/30/24 15:00 08/30/24 16:00 Temperature Pulse Rate 59 L 61 60 Respiratory Rate 16 16 16 Blood Pressure 112/53 L 109/54 L 114/52 L Pulse Oximetry 100 100 100 Oxygen Delivery 08/30/24 17:00 08/30/24 18:29 08/30/24 20:00 Temperature 98.5 F Pulse Rate 63 64 Respiratory Rate 18 18 Blood Pressure 109/57 L 102/51 L Pulse Oximetry 99 99 Oxygen Delivery Room Air 08/30/24 21:29 08/30/24 22:00 08/30/24 20:00 Temperature 98.5 F Pulse Rate 64 Respiratory Rate 18 14 Blood Pressure 102/51 L Pulse Oximetry 99 Oxygen Delivery Autopap Room Air 08/31/24 02:45 08/31/24 05:35 08/31/24 09:06 Temperature 98.1 F Pulse Rate 65 70 Respiratory Rate 12 18 Blood Pressure 111/47
[2024-08-31 10:43] LABS: Glucose Point of Care 142 mg/dl (65-105)
[2024-08-31 11:30] LABS: Glucose Point of Care 137 mg/dl (65-105)
[2024-08-31] MEDS: polyethylene glycoL 3350 17 GM POWD.PACK PO (13:30)
[2024-08-31 17:01] LABS: Glucose Point of Care 140 mg/dl (65-105)
[2024-08-31] MEDS: SODIUM CHLORIDE 0.9% IV 1,000 ML 100 ML IV CONT (18:04)
[2024-08-31] MEDS: SERTRALINE HCL 50 MG TABLET 100 MG PO (22:59)
[2024-08-31 23:05] LABS: Glucose Point of Care 113 mg/dl (65-105)
[2024-08-31] MEDS: MORPHINE SULFATE (*CRX) 2 MG/ML INJ IV PUSH (23:11)
[2024-09-01] MEDS: SODIUM CHLORIDE 0.9% IV 1,000 ML 100 ML IV CONT (04:01)
[2024-09-01 05:39] VITALS: BP 132/60; PULSE 72; RESP 18; TEMP 36.4; O2SAT 98
[2024-09-01 06:04] LABS: Mean Corpuscular HGB Conc 33.3 g/dl (32-36); Mean Corpuscular Hemoglobin 34.8 pg (26-34); Mean Corpuscular Volume 104.3 fl (80-100); Mean Platelet Volume 8.5 fl (7.4-10.4); Platelet Count Result 200 k/mm3 (150-375); Red Cell Distribution Width 16.9 % (11.5-14.5); White Blood Count 11.9 K/mm3 (4.5-10.0)
[2024-09-01 06:16] LABS: Alanine Aminotransferase 39 U/L (6-35); Albumin Level 3.2 g/dL (3.5-5.1); Alkaline Phosphatase 89 U/L (38-126); Anion Gap 7 mmol/L (4-12); Aspartate Amino Transferase 45 U/L (14-36); Bilirubin,Total 0.4 mg/dL (0.2-1.3); Blood Urea Nitrogen 9 mg/dL (7-17); Calcium 8.8 mg/dL (8.4-10.2); Carbon Dioxide 24 mmol/L (22-30); Chloride 106 mmol/L (98-107); Estimated CRCL calculation 60 ml/min; Estimated Glomerular Filt Rate > 60; Glucose 83 mg/dL (65-110); Potassium 3.9 mmol/L (3.4-5.0); Sodium 137 mmol/L (137-145)
[2024-09-01 06:32] LABS: Band Neutrophils Percent 15 % (0-6); Basophils Absolute Manual 0.11 K/mm3 (0.0-0.1); Basophils Percent Manual 1 % (0-1); Eosinophils Absolute Manual 0.11 K/mm3 (0.02-0.50); Eosinophils Percent Manual 1 % (0-4); Lymphocytes Absolute Manual 3.57 K/mm3 (1.1-4.5); Lymphocytes Percent Manual 30 % (18-44); Monocytes Absolute Manual 0.47 K/mm3 (0.1-0.90); Monocytes Percent Manual 4 % (3-9); Neutrophils Absolute Manual 7.73 K/mm3 (1.7-7.2); Neutrophils Percent Manual 50 % (46-73); Total Cells Counted 100
[2024-09-01 06:33] LABS: Macrocytosis 2+ (NORMAL); Platelet Estimate Adequate (Adequate); Schistocytes None Seen
[2024-09-01 08:34] LABS: Glucose Point of Care 83 mg/dl (65-105)
[2024-09-01 09:36] VITALS: PULSE 77
[2024-09-01] MEDS: ASPIRIN 81 MG ENTERIC TABLET PO (09:36)
[2024-09-01] MEDS: FAMOTIDINE 10 MG TABLET PO (09:36)
[2024-09-01] MEDS: carvediloL 25 MG TABLET PO ×2 (09:36→21:55)
[2024-09-01] MEDS: CALCIUM CARBONATE (OSCAL) 500 MG TABLET PO (09:36)
[2024-09-01] MEDS: MULTIVITAMINS THERAPEUTIC TAB (*BKC) 1 TABLET PO (09:36)
[2024-09-01] MEDS: ENOXAPARIN 40 MG/0.4 ML SYRINGE SUB-Q (09:37)
[2024-09-01] MEDS: EZETIMIBE 10 MG TABLET PO (09:37)
[2024-09-01] MEDS: MONTELUKAST SODIUM 10 MG TABLET PO (09:37)
[2024-09-01] MEDS: INSULIN GLARGINE (*BKC) 100 UNITS/ML 25 UNITS SUB-Q ×2 (09:45→21:57)
[2024-09-01] MEDS: MORPHINE SULFATE (*CRX) 2 MG/ML INJ IV PUSH ×2 (11:22→21:54)
[2024-09-01] MEDS: BISACODYL 5 MG TABLET EC PO (11:22)
[2024-09-01] MEDS: MEROPENEM 1 GM/NS 100 ML 1 GM/100 ML BAG IVPB ×2 (11:22→21:55)
--- NOTE | 2024-09-01 11:29 | PM.IMPN ---
Progress Note: A&P Assessment and Plan (1) Urinary tract infection due to extended-spectrum beta lactamase (ESBL) producing Escherichia coli: Code(s): N39.0 - Urinary tract infection, site not specified; B96.29 - Other Escherichia coli [E. coli] as the cause of diseases classified elsewhere; Z16.12 - Extended spectrum beta lactamase (ESBL) resistance Status: Acute Assessment and Plan: Patient reports having UTI's since the end of May, despite completing courses of cefdinir and ciprofloxacin. Urine culture obtained at the time for ED visit on 08/15/2024 grew out ESBL Escherichia coli resistant to cephalosporins and fluoroquinolones. She has been started on meropenem per antibiotic stewardship recommendations. Patient is receiving Meropenem 1 gm IVPB q12. Drink water Urine culture showed Escherichia Coli blood cultures pending. (2) Hyponatremia: Code(s): E87.1 - Hypo-osmolality and hyponatremia Status: Acute Assessment and Plan: sodium 137, improved. (3) Macrocytic anemia: Code(s): D53.9 - Nutritional anemia, unspecified Status: Acute Assessment and Plan: Hemoglobin 8, hematocrit 24 Monitor labs. (4) Type 2 diabetes mellitus: Code(s): E11.9 - Type 2 diabetes mellitus without complications Status: Acute Assessment and Plan: Hold metformin as she received IV contrast. Sliding scale insulin, long acting insulin, Accu-Cheks, and hypoglycemic protocol. (5) Hypertension: Code(s): I10 - Essential (primary) hypertension Status: Acute Assessment and Plan: Blood pressure 132/60 (6) Constipation: Code(s): K59.00 - Constipation, unspecified Status: Acute Assessment and Plan: Add Miralax 17 gm PO daily PRN and Dulcolax 5 mg PO daily PRN. Encourage water intake. Subjective Date/time seen: 09/01/24 11:29 Interval history: Patient denies chest pain, palpitations, headache, burning with urination, nausea, or vomiting. Patient reports last bowel movement was 3 days ago, medication ordered for her bowels. Patient reports eating and drinking well. Review of Systems Review of Systems: All systems reviewed & are unremarkable except as noted in HPI and below Exam Const: General: comfortable and no acute distress Eyes: Sclera: sclerae normal Resp: Effort & Inspection: normal respiratory effort Auscultation: clear to auscultation bilaterally Cardio: Rate: regular rate Rhythm: regular rhythm GI: GI Palp: Yes Soft to palpation Auscultation: normal bowel sounds Skin: General skin exam: no rashes or lesions noted Neuro: Speech: normal speech Extrem: General: normal to inspection Psych: Affect: normal affect Objective Data Vital Signs Vital Signs: Vital Signs - 24 hr 08/31/24 14:00 08/31/24 20:30 08/31/24 20:33 Temperature 97.7 F 97.6 F Pulse Rate 74 71 73 Respiratory Rate 14 16 Blood Pressure 133/56 L 135/58 L 131/53 L Pulse Oximetry 100 98 Oxygen Delivery 08/31/24 20:38 08/31/24 20:00 08/31/24 22:58 Temperature Pulse Rate 73 Respiratory Rate Blood Pressure 122/53 L Pulse Oximetry Oxygen Delivery Room Air 09/01/24 05:39 09/01/24 09:36 Temperature 97.6 F Pulse Rate 72 77 Respiratory Rate 18 Blood Pressure 132/60 Pulse Oximetry 98 Oxygen Delivery Intake/Output Intake/Output: Intake & Output 08/29/24 08/30/24 08/31/24 09/01/24 23:59 23:59 23:59 23:59 Intake Total 940 3419.0 2413.3 Balance 940 3419.0 2413.3 Meds/Results Medications: Active Medications Generic Name Dose Route Start Last Admin Trade Name Freq PRN Reason Stop Dose Admin Acetaminophen 650 mg 08/30/24 14:42 08/30/24 17:52 Acetaminophen 325 Mg Tablet PO 650 mg Q6H PRN Administration Mild Pain (1-3) or Fever Hydrocodone Bitart/Acetaminophen 1 tab 08/30/24 20:09 08/30/24 20:53 Hydrocodone/Acetaminophen (*Crx) 5-325 Mg Tablet PO 1 t
[2024-09-01 12:21] LABS: Glucose Point of Care 91 mg/dl (65-105)
[2024-09-01 13:16] VITALS: BP 117/50
[2024-09-01 13:49] VITALS: BP 117/50; PULSE 61; RESP 16; TEMP 37; O2SAT 100
[2024-09-01 17:05] LABS: Glucose Point of Care 127 mg/dl (65-105)
[2024-09-01 21:51] VITALS: BP 139/58; PULSE 69; RESP 16; TEMP 36.6; O2SAT 100
[2024-09-01 21:55] VITALS: PULSE 68
[2024-09-01] MEDS: SERTRALINE HCL 50 MG TABLET 100 MG PO (21:56)
[2024-09-01 23:03] LABS: Glucose Point of Care 113 mg/dl (65-105)
[2024-09-02 05:20] VITALS: BP 131/60; PULSE 75; RESP 18; TEMP 36.4; O2SAT 99
[2024-09-02 06:08] LABS: Hematocrit 24.7 % (37.0-47.0); Hemoglobin 8.3 g/dL (12.0-15.0); Mean Corpuscular HGB Conc 33.6 g/dl (32-36); Mean Corpuscular Volume 104.2 fl (80-100); Mean Platelet Volume 8.2 fl (7.4-10.4); Platelet Count Result 193 k/mm3 (150-375); Red Blood Count 2.37 M/mm3 (4.2-5.4); Red Cell Distribution Width 17.1 % (11.5-14.5); White Blood Count 11.1 K/mm3 (4.5-10.0)
[2024-09-02 06:25] LABS: Alanine Aminotransferase 49 U/L (6-35); Albumin Level 3.4 g/dL (3.5-5.1); Alkaline Phosphatase 92 U/L (38-126); Anion Gap 8 mmol/L (4-12); Aspartate Amino Transferase 52 U/L (14-36); Bilirubin,Total 0.3 mg/dL (0.2-1.3); Blood Urea Nitrogen 8 mg/dL (7-17); Calcium 9.1 mg/dL (8.4-10.2); Carbon Dioxide 25 mmol/L (22-30); Chloride 104 mmol/L (98-107); Estimated CRCL calculation 59 ml/min; Estimated Glomerular Filt Rate > 60; Glucose 57 mg/dL (65-110); Potassium 3.5 mmol/L (3.4-5.0); Sodium 137 mmol/L (137-145)
[2024-09-02 06:35] LABS: Anisocytosis 1+; Band Neutrophils Percent 6 % (0-6); Eosinophils Absolute Manual 0.22 K/mm3 (0.02-0.50); Eosinophils Percent Manual 2 % (0-4); Lymphocytes Absolute Manual 3.77 K/mm3 (1.1-4.5); Lymphocytes Percent Manual 34 % (18-44); Monocytes Absolute Manual 0.66 K/mm3 (0.1-0.90); Monocytes Percent Manual 6 % (3-9); Myelocytes Percent 2 %; Neutrophils Absolute Manual 6.21 K/mm3 (1.7-7.2); Neutrophils Percent Manual 50 % (46-73); Platelet Estimate Adequate (Adequate); Schistocytes None Seen; Total Cells Counted 100
[2024-09-02] MEDS: DEXTROSE 50% 25 GM/50 ML SYRINGE IV PUSH (06:38)
[2024-09-02 07:18] LABS: Glucose Point of Care 275 mg/dl (65-105)
[2024-09-02 09:07] LABS: Glucose Point of Care 175 mg/dl (65-105)
[2024-09-02 09:46] VITALS: PULSE 69
[2024-09-02] MEDS: carvediloL 25 MG TABLET PO ×2 (09:46→20:44)
[2024-09-02] MEDS: MULTIVITAMINS THERAPEUTIC TAB (*BKC) 1 TABLET PO (09:48)
[2024-09-02] MEDS: CALCIUM CARBONATE (OSCAL) 500 MG TABLET PO (09:48)
[2024-09-02] MEDS: ASPIRIN 81 MG ENTERIC TABLET PO (09:48)
[2024-09-02] MEDS: FAMOTIDINE 10 MG TABLET PO (09:48)
[2024-09-02] MEDS: EZETIMIBE 10 MG TABLET PO (09:48)
[2024-09-02] MEDS: MONTELUKAST SODIUM 10 MG TABLET PO (09:48)
[2024-09-02] MEDS: ENOXAPARIN 40 MG/0.4 ML SYRINGE SUB-Q (09:48)
[2024-09-02] MEDS: INSULIN GLARGINE (*BKC) 100 UNITS/ML 25 UNITS SUB-Q (09:50)
[2024-09-02] MEDS: MEROPENEM 1 GM/NS 100 ML 1 GM/100 ML BAG IVPB ×2 (10:34→20:45)
--- NOTE | 2024-09-02 11:19 | PM.IMPN ---
Progress Note: A&P Assessment and Plan (1) Urinary tract infection due to extended-spectrum beta lactamase (ESBL) producing Escherichia coli: Code(s): N39.0 - Urinary tract infection, site not specified; B96.29 - Other Escherichia coli [E. coli] as the cause of diseases classified elsewhere; Z16.12 - Extended spectrum beta lactamase (ESBL) resistance Status: Acute Assessment and Plan: Patient reports having UTI's since the end of May, despite completing courses of cefdinir and ciprofloxacin. Urine culture obtained at the time for ED visit on 08/15/2024 grew out ESBL Escherichia coli resistant to cephalosporins and fluoroquinolones. She has been started on meropenem per antibiotic stewardship recommendations. Patient is receiving Meropenem 1 gm IVPB q12. Drink water Urine culture showed Escherichia Coli blood cultures no growth to date. (2) Hyponatremia: Code(s): E87.1 - Hypo-osmolality and hyponatremia Status: Acute Assessment and Plan: sodium 137, improved. (3) Macrocytic anemia: Code(s): D53.9 - Nutritional anemia, unspecified Status: Acute Assessment and Plan: Hemoglobin 8.3, hematocrit 24.7 Monitor labs. 08/30/24: Iron 161, TIBC 371, % saturation 43, Ferritin 313 (4) Type 2 diabetes mellitus: Code(s): E11.9 - Type 2 diabetes mellitus without complications Status: Acute Assessment and Plan: Hold metformin as she received IV contrast. Sliding scale insulin, long acting insulin, Accu-Cheks, and hypoglycemic protocol. Patient had a low blood sugar of 57 on labs this morning. Patient reported feeling a little sweaty. Patient to eat a bedtime snack tonight and to report any symptoms of low blood sugar. (5) Hypertension: Code(s): I10 - Essential (primary) hypertension Status: Acute Assessment and Plan: Blood pressure 131/60 (6) Constipation: Code(s): K59.00 - Constipation, unspecified Status: Acute Assessment and Plan: Add Miralax 17 gm PO daily PRN and Dulcolax 5 mg PO daily PRN. Encourage water intake. Bowel movement today. (7) Nausea: Code(s): R11.0 - Nausea Status: Acute Assessment and Plan: Add Ondansetron 4 mg PO q 6 PRN. Subjective Date/time seen: 09/02/24 11:19 Interval history: Patient denies chest pain, palpitations, headache, burning with urination, nausea, or vomiting this morning. Patient later developed nausea. Patient reports eating and drinking well. Patient had a low blood sugar of 57 on labs this morning. Patient reported feeling a little sweaty. Review of Systems Review of Systems: All systems reviewed & are unremarkable except as noted in HPI and below Exam Const: General: no acute distress Resp: Effort & Inspection: normal respiratory effort Auscultation: clear to auscultation bilaterally Cardio: Rate: regular rate Rhythm: regular rhythm GI: GI Palp: Yes Soft to palpation Auscultation: normal bowel sounds Other: Last BM 09/02/24. Slight CVA tenderness on the right side. Skin: General skin exam: no rashes or lesions noted Neuro: Speech: normal speech Extrem: General: normal to inspection Psych: Affect: normal affect Objective Data Vital Signs Vital Signs: Vital Signs - 24 hr 09/01/24 13:16 09/01/24 13:49 09/01/24 21:51 Temperature 98.6 F 98 F Pulse Rate 61 69 Respiratory Rate 16 16 Blood Pressure 117/50 L 117/50 L 139/58 L Pulse Oximetry 100 100 Oxygen Delivery 09/01/24 21:55 09/01/24 20:00 09/02/24 05:20 Temperature 97.6 F Pulse Rate 68 75 Respiratory Rate 18 Blood Pressure 131/60 Pulse Oximetry 99 Oxygen Delivery Room Air 09/02/24 09:46 Temperature Pulse Rate 69 Respiratory Rate Blood Pressure Pulse Oximetry Oxygen Delivery Intake/Output Intake/Output: Intake & Output 08/30/24 08/31/24 09/01/24 09/02/24 23:59 23:59 23:59 23:59 Intake Total 9
[2024-09-02 12:06] LABS: Glucose Point of Care 113 mg/dl (65-105)
[2024-09-02] MEDS: ONDANSETRON HCL ODT 4 MG TABLET PO (13:45)
[2024-09-02 14:00] VITALS: BP 123/46; PULSE 67; RESP 18; TEMP 36.7; O2SAT 97
[2024-09-02 17:10] LABS: Glucose Point of Care 70 mg/dl (65-105)
[2024-09-02 20:39] VITALS: BP 137/53; PULSE 73; RESP 18; TEMP 37; O2SAT 97
[2024-09-02 20:44] VITALS: PULSE 79
[2024-09-02] MEDS: SERTRALINE HCL 50 MG TABLET 100 MG PO (20:44)
[2024-09-02] MEDS: HYDROcodone/acetaminophen (*CRX) 5-325 MG TABLET 1 TAB PO (20:50)
[2024-09-02 20:52] LABS: Glucose Point of Care 129 mg/dl (65-105)
[2024-09-03 05:20] VITALS: BP 110/45; PULSE 64; RESP 18; TEMP 36.1; O2SAT 97
[2024-09-03 06:14] LABS: Hematocrit 24.1 % (37.0-47.0); Hemoglobin 8.2 g/dL (12.0-15.0); Mean Corpuscular Hemoglobin 35.5 pg (26-34); Mean Corpuscular Volume 104.3 fl (80-100); Mean Platelet Volume 8.4 fl (7.4-10.4); Platelet Count Result 196 k/mm3 (150-375); Red Blood Count 2.31 M/mm3 (4.2-5.4); White Blood Count 10.3 K/mm3 (4.5-10.0)
[2024-09-03 06:29] LABS: Alanine Aminotransferase 53 U/L (6-35); Albumin Level 3.3 g/dL (3.5-5.1); Alkaline Phosphatase 96 U/L (38-126); Anion Gap 4 mmol/L (4-12); Aspartate Amino Transferase 54 U/L (14-36); Bilirubin,Total 0.4 mg/dL (0.2-1.3); Blood Urea Nitrogen 8 mg/dL (7-17); Carbon Dioxide 30 mmol/L (22-30); Chloride 103 mmol/L (98-107); Estimated CRCL calculation 59 ml/min; Estimated Glomerular Filt Rate > 60; Glucose 60 mg/dL (65-110); Potassium 3.5 mmol/L (3.4-5.0); Sodium 137 mmol/L (137-145)
[2024-09-03 06:44] LABS: Band Neutrophils Percent 9 % (0-6); Basophils Percent Manual 1 % (0-1); Metamyelocytes Percent 2 %; Monocytes Absolute Manual 0.51 K/mm3 (0.1-0.90); Monocytes Percent Manual 5 % (3-9); Neutrophils Absolute Manual 5.87 K/mm3 (1.7-7.2); Neutrophils Percent Manual 48 % (46-73); Nucleated Red Blood Cells 1 %; Platelet Estimate Adequate (Adequate); Schistocytes None Seen; Total Cells Counted 100
[2024-09-03 06:45] LABS: Anisocytosis 1+; Hypochromasia 1+; Ovalocytes 1+
[2024-09-03 06:55] LABS: Glucose Point of Care 78 mg/dl (65-105)
[2024-09-03 08:23] LABS: Glucose Point of Care 104 mg/dl (65-105)
[2024-09-03 09:04] VITALS: PULSE 63
[2024-09-03] MEDS: ENOXAPARIN 40 MG/0.4 ML SYRINGE SUB-Q (09:04)
[2024-09-03] MEDS: CALCIUM CARBONATE (OSCAL) 500 MG TABLET PO (09:04)
[2024-09-03] MEDS: carvediloL 25 MG TABLET PO ×2 (09:04→20:00)
[2024-09-03] MEDS: FAMOTIDINE 10 MG TABLET PO (09:05)
[2024-09-03] MEDS: EZETIMIBE 10 MG TABLET PO (09:05)
[2024-09-03] MEDS: MULTIVITAMINS THERAPEUTIC TAB (*BKC) 1 TABLET PO (09:05)
[2024-09-03] MEDS: ASPIRIN 81 MG ENTERIC TABLET PO (09:05)
[2024-09-03] MEDS: MONTELUKAST SODIUM 10 MG TABLET PO (09:06)
[2024-09-03] MEDS: MEROPENEM 1 GM/NS 100 ML 1 GM/100 ML BAG IVPB ×2 (09:07→17:24)
[2024-09-03] MEDS: HYDROcodone/acetaminophen (*CRX) 5-325 MG TABLET 1 TAB PO ×2 (10:07→20:00)
--- NOTE | 2024-09-03 10:41 | PM.IMPN ---
Progress Note: A&P Assessment and Plan (1) Urinary tract infection due to extended-spectrum beta lactamase (ESBL) producing Escherichia coli: Code(s): N39.0 - Urinary tract infection, site not specified; B96.29 - Other Escherichia coli [E. coli] as the cause of diseases classified elsewhere; Z16.12 - Extended spectrum beta lactamase (ESBL) resistance Status: Acute Assessment and Plan: Patient reports having UTI's since the end of May, despite completing courses of cefdinir and ciprofloxacin. Urine culture obtained at the time for ED visit on 08/15/2024 grew out ESBL Escherichia coli resistant to cephalosporins and fluoroquinolones. She has been started on meropenem per antibiotic stewardship recommendations. Patient is receiving Meropenem 1 gm IVPB q12 for 7 days. Drink water Urine culture showed Escherichia Coli blood cultures no growth to date. WBC 14.1>12.6>11.9>11.1>10.3 (2) Hyponatremia: Code(s): E87.1 - Hypo-osmolality and hyponatremia Status: Acute Assessment and Plan: sodium 137, improved. (3) Macrocytic anemia: Code(s): D53.9 - Nutritional anemia, unspecified Status: Acute Assessment and Plan: Hemoglobin 8.2, hematocrit 24.1 Monitor labs. 08/30/24: Iron 161, TIBC 371, % saturation 43, Ferritin 313 (4) Type 2 diabetes mellitus: Code(s): E11.9 - Type 2 diabetes mellitus without complications Status: Acute Assessment and Plan: Hold metformin as she received IV contrast. Sliding scale insulin, long acting insulin, Accu-Cheks, and hypoglycemic protocol. Patient had a low blood sugar of 60 on labs this morning. Patient to eat a bedtime snack tonight and to report any symptoms of low blood sugar. Decrease Lantus 15 units subq BID. (5) Hypertension: Code(s): I10 - Essential (primary) hypertension Status: Acute Assessment and Plan: Blood pressure 110/45 (6) Constipation: Code(s): K59.00 - Constipation, unspecified Status: Acute Assessment and Plan: Add Miralax 17 gm PO daily PRN and Dulcolax 5 mg PO daily PRN. Encourage water intake. Bowel movement today. Subjective Date/time seen: 09/03/24 10:41 Interval history: Patient denies chest pain, palpitations, burning with urination, nausea, or vomiting this morning. Patient reports a headache that is an 8 , constant, and aching. Patient reports eating and drinking well. Patient had a low blood sugar of 60 on labs this morning. Patient reports that she has been prescribed Lantus 25 units subq q 12 but has only been taking 15 units subq twice daily. Review of Systems Review of Systems: All systems reviewed & are unremarkable except as noted in HPI and below Exam Const: General: no acute distress and uncomfortable Resp: Effort & Inspection: normal respiratory effort Auscultation: clear to auscultation bilaterally Cardio: Rate: regular rate Rhythm: regular rhythm GI: GI Palp: Yes Soft to palpation Auscultation: normal bowel sounds Other: Last BM 09/02/24. Slight CVA tenderness on the right side. Skin: General skin exam: no rashes or lesions noted Neuro: Speech: normal speech Extrem: General: normal to inspection Psych: Affect: normal affect Objective Data Vital Signs Vital Signs: Vital Signs - 24 hr 09/02/24 14:00 09/02/24 20:44 09/02/24 20:39 Temperature 98.0 F 98.6 F Pulse Rate 67 79 73 Respiratory Rate 18 18 Blood Pressure 123/46 L 137/53 L Pulse Oximetry 97 97 09/03/24 05:20 09/03/24 09:04 Temperature 97 F L Pulse Rate 64 63 Respiratory Rate 18 Blood Pressure 110/45 L Pulse Oximetry 97 Intake/Output Intake/Output: Intake & Output 08/31/24 09/01/24 09/02/24 09/03/24 23:59 23:59 23:59 23:59 Intake Total 3419.0 3153.3 1010 350 Balance 3419.0 3153.3 1010 350 Meds/Results Medications: Active Medications Generic Name Dose Route Start Last Admin Trade Name
[2024-09-03 12:22] LABS: Glucose Point of Care 99 mg/dl (65-105)
[2024-09-03 13:59] LABS: Osmolality, Urine 139 mOsm/kg (50-1200)
[2024-09-03 14:00] VITALS: BP 110/52; PULSE 70; RESP 18; TEMP 36.8; O2SAT 97
[2024-09-03 17:13] LABS: Glucose Point of Care 107 mg/dl (65-105)
[2024-09-03 20:00] VITALS: PULSE 78
[2024-09-03] MEDS: SERTRALINE HCL 50 MG TABLET 100 MG PO (20:00)
[2024-09-03] MEDS: INSULIN GLARGINE (*BKC) 100 UNITS/ML 15 UNITS SUB-Q (20:02)
[2024-09-03 20:16] LABS: Glucose Point of Care 206 mg/dl (65-105)
[2024-09-03 21:18] VITALS: BP 123/53; PULSE 78; RESP 18; TEMP 37.2; O2SAT 97
[2024-09-04 05:53] LABS: Hematocrit 25.6 % (37.0-47.0); Hemoglobin 8.4 g/dL (12.0-15.0); Mean Corpuscular HGB Conc 32.8 g/dl (32-36); Mean Corpuscular Hemoglobin 34.6 pg (26-34); Mean Corpuscular Volume 105.3 fl (80-100); Mean Platelet Volume 8.9 fl (7.4-10.4); Platelet Count Result 210 k/mm3 (150-375); Red Blood Count 2.43 M/mm3 (4.2-5.4); Red Cell Distribution Width 17.2 % (11.5-14.5); White Blood Count 10.4 K/mm3 (4.5-10.0)
[2024-09-04 06:00] VITALS: BP 118/76; PULSE 68; RESP 18; TEMP 37; O2SAT 99
[2024-09-04 06:09] LABS: Alanine Aminotransferase 60 U/L (6-35); Albumin Level 3.3 g/dL (3.5-5.1); Alkaline Phosphatase 108 U/L (38-126); Anion Gap 5 mmol/L (4-12); Aspartate Amino Transferase 61 U/L (14-36); Bilirubin,Total 0.4 mg/dL (0.2-1.3); Blood Urea Nitrogen 9 mg/dL (7-17); Calcium 8.9 mg/dL (8.4-10.2); Carbon Dioxide 30 mmol/L (22-30); Chloride 102 mmol/L (98-107); Estimated CRCL calculation 59 ml/min; Estimated Glomerular Filt Rate > 60; Glucose 74 mg/dL (65-110); Potassium 3.7 mmol/L (3.4-5.0); Sodium 137 mmol/L (137-145)
[2024-09-04 06:42] LABS: Band Neutrophils Percent 9 % (0-6); Basophils Percent Manual 2 % (0-1); Lymphocytes Absolute Manual 3.84 K/mm3 (1.1-4.5); Lymphocytes Percent Manual 37 % (18-44); Monocytes Percent Manual 1 % (3-9); Neutrophils Absolute Manual 5.92 K/mm3 (1.7-7.2); Neutrophils Percent Manual 48 % (46-73); Nucleated Red Blood Cells 1 %; Platelet Estimate Adequate (Adequate); Total Cells Counted 100
[2024-09-04 06:43] LABS: Anisocytosis 1+; Atypical Lymphocytes Present; Hypochromasia 1+; Schistocytes None Seen
[2024-09-04 08:24] LABS: Glucose Point of Care 79 mg/dl (65-105)
[2024-09-04 08:55] VITALS: PULSE 67
[2024-09-04] MEDS: carvediloL 25 MG TABLET PO ×2 (08:55→20:41)
[2024-09-04] MEDS: ASPIRIN 81 MG ENTERIC TABLET PO (08:56)
[2024-09-04] MEDS: MULTIVITAMINS THERAPEUTIC TAB (*BKC) 1 TABLET PO (08:56)
[2024-09-04] MEDS: CALCIUM CARBONATE (OSCAL) 500 MG TABLET PO (08:56)
[2024-09-04] MEDS: EZETIMIBE 10 MG TABLET PO (08:56)
[2024-09-04] MEDS: MONTELUKAST SODIUM 10 MG TABLET PO (08:56)
[2024-09-04] MEDS: FAMOTIDINE 10 MG TABLET PO (08:56)
[2024-09-04] MEDS: ENOXAPARIN 40 MG/0.4 ML SYRINGE SUB-Q (08:56)
[2024-09-04] MEDS: MEROPENEM 1 GM/NS 100 ML 1 GM/100 ML BAG IVPB ×3 (08:57→17:18)
--- NOTE | 2024-09-04 11:48 | PM.IMPN ---
Progress Note: A&P Assessment and Plan (1) Urinary tract infection due to extended-spectrum beta lactamase (ESBL) producing Escherichia coli: Code(s): N39.0 - Urinary tract infection, site not specified; B96.29 - Other Escherichia coli [E. coli] as the cause of diseases classified elsewhere; Z16.12 - Extended spectrum beta lactamase (ESBL) resistance Status: Acute Assessment and Plan: Patient reports having UTI's since the end of May, despite completing courses of cefdinir and ciprofloxacin. Urine culture obtained at the time for ED visit on 08/15/2024 grew out ESBL Escherichia coli resistant to cephalosporins and fluoroquinolones. She has been started on meropenem per antibiotic stewardship recommendations. Patient is receiving Meropenem 1 gm IVPB q12 for 7 days. Drink water Urine culture showed Escherichia Coli blood cultures no growth to date. WBC 14.1>12.6>11.9>11.1>10.3>10.4 (2) Hyponatremia: Code(s): E87.1 - Hypo-osmolality and hyponatremia Status: Acute Assessment and Plan: sodium 137, improved. (3) Macrocytic anemia: Code(s): D53.9 - Nutritional anemia, unspecified Status: Acute Assessment and Plan: Hemoglobin 8.4, hematocrit 25.6, improving. Monitor labs. 08/30/24: Iron 161, TIBC 371, % saturation 43, Ferritin 313 (4) Type 2 diabetes mellitus: Code(s): E11.9 - Type 2 diabetes mellitus without complications Status: Acute Assessment and Plan: Hold metformin as she received IV contrast. Sliding scale insulin, long acting insulin, Accu-Cheks, and hypoglycemic protocol. Blood sugar of 74 on labs this morning. Patient to eat a bedtime snack tonight and to report any symptoms of low blood sugar. Continue Lantus 15 units subq BID. (5) Hypertension: Code(s): I10 - Essential (primary) hypertension Status: Acute Assessment and Plan: Blood pressure 118/76 (6) Constipation: Code(s): K59.00 - Constipation, unspecified Status: Acute Assessment and Plan: Add Miralax 17 gm PO daily PRN and Dulcolax 5 mg PO daily PRN. Encourage water intake. Bowel movement today. Subjective Date/time seen: 09/04/24 11:48 Interval history: Patient denies chest pain, palpitations, burning with urination, nausea, or vomiting this morning. Patient reports a headache that is an 3 , constant, and aching. Patient reports eating and drinking well. Patient reports that right CVA tenderness is improving. Review of Systems Review of Systems: All systems reviewed & are unremarkable except as noted in HPI and below Exam Const: General: no acute distress Eyes: Sclera: sclerae normal Resp: Effort & Inspection: normal respiratory effort Auscultation: clear to auscultation bilaterally Cardio: Rate: regular rate Rhythm: regular rhythm GI: GI Palp: Yes Soft to palpation Auscultation: normal bowel sounds Other: Last BM 09/03/24. Decreased right CVA tenderness. Neuro: Speech: normal speech Extrem: General: normal to inspection Psych: Affect: normal affect Objective Data Vital Signs Vital Signs: Vital Signs - 24 hr 09/03/24 14:00 09/03/24 20:00 09/03/24 20:00 Temperature 98.2 F Pulse Rate 70 78 Respiratory Rate 18 Blood Pressure 110/52 L Pulse Oximetry 97 Oxygen Delivery Room Air 09/03/24 21:18 09/04/24 06:00 09/04/24 08:55 Temperature 99.0 F 98.6 F Pulse Rate 78 68 67 Respiratory Rate 18 18 Blood Pressure 123/53 L 118/76 Pulse Oximetry 97 99 Oxygen Delivery 09/04/24 09:50 Temperature Pulse Rate Respiratory Rate Blood Pressure Pulse Oximetry Oxygen Delivery Room Air Intake/Output Intake/Output: Intake & Output 09/01/24 09/02/24 09/03/24 09/04/24 23:59 23:59 23:59 23:59 Intake Total 3153.3 1010 1050 1080 Balance 3153.3 1010 1050 1080 Meds/Results Medications: Active Medications Generic Name Dose Route Start Last Admin
[2024-09-04 11:55] LABS: Glucose Point of Care 97 mg/dl (65-105)
[2024-09-04 14:00] VITALS: BP 128/60; PULSE 68; RESP 18; TEMP 36.8; O2SAT 97
[2024-09-04 16:56] LABS: Glucose Point of Care 96 mg/dl (65-105)
[2024-09-04 20:19] LABS: Glucose Point of Care 122 mg/dl (65-105)
[2024-09-04] MEDS: HYDROcodone/acetaminophen (*CRX) 5-325 MG TABLET 1 TAB PO (20:40)
[2024-09-04] MEDS: SERTRALINE HCL 50 MG TABLET 100 MG PO (20:40)
[2024-09-04 20:41] VITALS: PULSE 67
[2024-09-04 21:26] VITALS: BP 134/64; PULSE 67; RESP 18; TEMP 36.9; O2SAT 100
[2024-09-05] MEDS: MEROPENEM 1 GM/NS 100 ML 1 GM/100 ML BAG IVPB ×3 (00:45→17:53)
[2024-09-05 05:31] LABS: Hematocrit 26.9 % (37.0-47.0); Hemoglobin 8.9 g/dL (12.0-15.0); Mean Corpuscular HGB Conc 33.1 g/dl (32-36); Mean Corpuscular Hemoglobin 34.4 pg (26-34); Mean Corpuscular Volume 103.9 fl (80-100); Mean Platelet Volume 8.6 fl (7.4-10.4); Platelet Count Result 215 k/mm3 (150-375); Red Blood Count 2.59 M/mm3 (4.2-5.4); Red Cell Distribution Width 17.1 % (11.5-14.5); White Blood Count 11.3 K/mm3 (4.5-10.0)
[2024-09-05 05:45] LABS: Alanine Aminotransferase 51 U/L (6-35); Albumin Level 3.5 g/dL (3.5-5.1); Alkaline Phosphatase 110 U/L (38-126); Anion Gap 5 mmol/L (4-12); Aspartate Amino Transferase 56 U/L (14-36); Bilirubin,Total 0.5 mg/dL (0.2-1.3); Blood Urea Nitrogen 9 mg/dL (7-17); Calcium 9.3 mg/dL (8.4-10.2); Carbon Dioxide 29 mmol/L (22-30); Chloride 103 mmol/L (98-107); Estimated CRCL calculation 69 ml/min; Estimated Glomerular Filt Rate > 60; Glucose 110 mg/dL (65-110); Potassium 3.5 mmol/L (3.4-5.0); Sodium 137 mmol/L (137-145)
[2024-09-05 06:00] VITALS: BP 126/54; PULSE 78; RESP 18; TEMP 37.1; O2SAT 98
[2024-09-05 06:27] LABS: Band Neutrophils Percent 7 % (0-6); Lymphocytes Absolute Manual 4.63 K/mm3 (1.1-4.5); Lymphocytes Percent Manual 41 % (18-44); Monocytes Absolute Manual 0.45 K/mm3 (0.1-0.90); Monocytes Percent Manual 4 % (3-9); Neutrophils Absolute Manual 5.76 K/mm3 (1.7-7.2); Neutrophils Percent Manual 44 % (46-73); Total Cells Counted 100
[2024-09-05 06:28] LABS: Anisocytosis 1+; Burr Cells 1+; Eosinophils Absolute Manual 0.22 K/mm3 (0.02-0.50); Eosinophils Percent Manual 2 % (0-4); Hypochromasia 1+; Metamyelocytes Percent 2 %; Nucleated Red Blood Cells 2 %; Poikilocytosis 1+
[2024-09-05 06:29] LABS: Ovalocytes 1+; Schistocytes None Seen
[2024-09-05 06:52] LABS: Platelet Estimate Adequate (Adequate)
[2024-09-05 08:00] VITALS: PULSE 70; RESP 18; O2SAT 98
[2024-09-05 08:33] LABS: Glucose Point of Care 153 mg/dl (65-105)
--- NOTE | 2024-09-05 09:08 | PM.IMPN ---
Progress Note: A&P Assessment and Plan (1) Urinary tract infection due to extended-spectrum beta lactamase (ESBL) producing Escherichia coli: Code(s): N39.0 - Urinary tract infection, site not specified; B96.29 - Other Escherichia coli [E. coli] as the cause of diseases classified elsewhere; Z16.12 - Extended spectrum beta lactamase (ESBL) resistance Status: Acute Assessment and Plan: Patient reports having UTI's since the end of May, despite completing courses of cefdinir and ciprofloxacin. Urine culture obtained at the time for ED visit on 08/15/2024 grew out ESBL E coli resistant to cephalosporins and fluoroquinolones. She has been started on meropenem per antibiotic stewardship recommendations. Urine culture obtained on 08/30: Ecoli with ESBL resistance Patient is receiving Meropenem 1 gm IVPB q12 for 7 days course to be completed tonight blood cultures no growth to date. (2) Hyponatremia: Code(s): E87.1 - Hypo-osmolality and hyponatremia Status: Acute Assessment and Plan: sodium 137, improved. (3) Macrocytic anemia: Code(s): D53.9 - Nutritional anemia, unspecified Status: Acute Assessment and Plan: Hemoglobin 8.9, hematocrit 26.9, improving. Monitor labs. 08/30/24: Iron 161, TIBC 371, % saturation 43, Ferritin 313 (4) Type 2 diabetes mellitus: Code(s): E11.9 - Type 2 diabetes mellitus without complications Status: Acute Assessment and Plan: Hold metformin as she received IV contrast. Sliding scale insulin, long acting insulin, Accu-Cheks, and hypoglycemic protocol. Continue Lantus 15 units subq BID. (5) Hypertension: Code(s): I10 - Essential (primary) hypertension Status: Acute Assessment and Plan: Chronic, continue home medications. - Coreg 25 mg BID - Losartan 25 mg BID - Monitor (6) Constipation: Code(s): K59.00 - Constipation, unspecified Status: Acute Assessment and Plan: Add Miralax 17 gm PO daily PRN and Dulcolax 5 mg PO daily PRN. Encourage water intake. Bowel movement 09/04 Time Spent With Patient Time with patient: 25 - 35 minutes Subjective Date/time seen: 09/05/24 09:08 Interval history: 73-year-old female with history of urinary tract infections, hypertension, hyperlipidemia, and type 2 diabetes mellitus who presented to the emergency department via EMS from home for evaluation of urinary symptoms. Patient is pleasant lying comfortably in bed. She has no complaints at this time denying chest pain, shortness a breath, nausea /vomiting, and abdominal pain. She remained inpatient at this time to complete her IV antibiotic course. Review of Systems Review of Systems: All systems reviewed & are unremarkable except as noted in HPI and below Exam Narrative: AF HR 74 RR 16 SpO2 97 BP 130/56 General: female in no acute respiratory distress who is nontoxic appearing, lying semi recumbent in bed. HEENT: Normocephalic. Atraumatic. Extraocular movement intact. No facial asymmetry. Neck: Neck was supple. No dominant adenopathy, thyromegaly or masses. 2+ carotid upstrokes without bruits. Chest: Lungs are clear to auscultation bilaterally. No wheezes or crackles. CV: Heart was regular rate and rhythm. S1-S2. No murmurs, gallops, or rubs. Abd: Abdomen was soft. Nontender. Nondistended. Positive bowel sounds. No organomegaly or masses. Ext: No clubbing, cyanosis, or edema. 2+ DP pulses bilaterally. Neuro: Patient is alert and oriented x4. Speech is clear. Objective Data Vital Signs Vital Signs: Vital Signs - 24 hr 09/04/24 09:50 09/04/24 14:00 09/04/24 20:41 Temperature 98.2 F Pulse Rate 68 67 Respiratory Rate 18 Blood Pressure 128/60 Pulse Oximetry 97 Oxygen Delivery Room Air 09/04/24 21:26 09/04/24 20:00 09/05/24 06:00 Temperature 98.4 F 98.8 F Pulse Rate 67 78 Respiratory Rate 18 18 Blood Pressure 134/64 126/54 L Pulse Oxime
[2024-09-05] MEDS: MULTIVITAMINS THERAPEUTIC TAB (*BKC) 1 TABLET PO (09:12)
[2024-09-05] MEDS: FAMOTIDINE 10 MG TABLET PO (09:12)
[2024-09-05] MEDS: MONTELUKAST SODIUM 10 MG TABLET PO (09:12)
[2024-09-05] MEDS: ASPIRIN 81 MG ENTERIC TABLET PO (09:13)
[2024-09-05] MEDS: EZETIMIBE 10 MG TABLET PO (09:13)
[2024-09-05] MEDS: CALCIUM CARBONATE (OSCAL) 500 MG TABLET PO (09:13)
[2024-09-05 09:15] VITALS: PULSE 70
[2024-09-05] MEDS: carvediloL 25 MG TABLET PO ×2 (09:15→21:04)
[2024-09-05] MEDS: ENOXAPARIN 40 MG/0.4 ML SYRINGE SUB-Q (09:16)
--- NOTE | 2024-09-05 09:35 | PCNFU ---
Nutrition Follow-Up Complete: Unintended weight loss as related to UTI as evidenced by poor po intake reported and 11 ibs (7%) weight loss in 2 weeks. Goal: Adequate Intake of at least 75% of meals/supplements Patient is progressing towards goal. We will continue current goal. Pt current nutrition is DBCC. Nutrition recommendation: discontinue Glucerna shakes Last recorded weight is 70.5 kg, up from 63.4 kg on admit. Bowel Motility: +BM reported 09/04 Labs Reviewed:Cr 0.5, Hct 26.9,Hgb 8.9 Meds Noted: Miralax, Meropenem, Oscal, MVI, NovoLog, Lantus. Skin: WNL Additional Notes: Patient remains on a DBCC diet. Oral Intake has been 50-100% of most meals. Patient states to not drinking the diet supplements. Would recommend to discontinue supplements. Agree with diet orders. RD will monitor weight, labs, skin, oral intake, meds every 5 days.
[2024-09-05 12:07] LABS: Glucose Point of Care 129 mg/dl (65-105)
[2024-09-05 14:00] VITALS: BP 130/56; PULSE 74; RESP 16; TEMP 36.7; O2SAT 97
[2024-09-05 16:39] LABS: Glucose Point of Care 125 mg/dl (65-105)
[2024-09-05 20:57] VITALS: BP 141/61; PULSE 67; RESP 16; TEMP 37.2; O2SAT 97
[2024-09-05 21:04] VITALS: PULSE 67
[2024-09-05] MEDS: HYDROcodone/acetaminophen (*CRX) 5-325 MG TABLET 1 TAB PO (21:04)
[2024-09-05] MEDS: SERTRALINE HCL 50 MG TABLET 100 MG PO (21:04)
[2024-09-05 21:09] LABS: Glucose Point of Care 124 mg/dl (65-105)
[2024-09-06 02:01] LABS: Glucose Point of Care 111 mg/dl (65-105)
[2024-09-06 05:52] VITALS: BP 129/68; PULSE 71; RESP 16; TEMP 37.2; O2SAT 97
[2024-09-06 06:04] LABS: Alanine Aminotransferase 45 U/L (6-35); Albumin Level 3.5 g/dL (3.5-5.1); Alkaline Phosphatase 111 U/L (38-126); Anion Gap 7 mmol/L (4-12); Aspartate Amino Transferase 62 U/L (14-36); Bilirubin,Total 0.5 mg/dL (0.2-1.3); Blood Urea Nitrogen 9 mg/dL (7-17); Calcium 9.1 mg/dL (8.4-10.2); Carbon Dioxide 28 mmol/L (22-30); Chloride 102 mmol/L (98-107); Estimated CRCL calculation 59 ml/min; Estimated Glomerular Filt Rate > 60; Glucose 150 mg/dL (65-110); Potassium 3.7 mmol/L (3.4-5.0); Sodium 137 mmol/L (137-145)
[2024-09-06 06:11] LABS: Hematocrit 26.3 % (37.0-47.0); Hemoglobin 8.8 g/dL (12.0-15.0); Mean Corpuscular HGB Conc 33.5 g/dl (32-36); Mean Corpuscular Hemoglobin 35.3 pg (26-34); Mean Corpuscular Volume 105.6 fl (80-100); Mean Platelet Volume 8.6 fl (7.4-10.4); Platelet Count Result 221 k/mm3 (150-375); Red Blood Count 2.49 M/mm3 (4.2-5.4); Red Cell Distribution Width 17.2 % (11.5-14.5); White Blood Count 10.2 K/mm3 (4.5-10.0)
[2024-09-06 07:26] LABS: Band Neutrophils Percent 6 % (0-6); Basophils Percent Manual 1 % (0-1); Eosinophils Percent Manual 3 % (0-4); Large Platelets Present; Lymphocytes Absolute Manual 4.28 K/mm3 (1.1-4.5); Lymphocytes Percent Manual 42 % (18-44); Metamyelocytes Percent 2 %; Monocytes Percent Manual 3 % (3-9); Neutrophils Absolute Manual 4.89 K/mm3 (1.7-7.2); Neutrophils Percent Manual 42 % (46-73); Nucleated Red Blood Cells 2 %; Platelet Estimate Adequate (Adequate); Promyelocytes Percent 1 %; Total Cells Counted 100
[2024-09-06 07:27] LABS: Anisocytosis 2+; Ovalocytes 1+; Schistocytes None Seen
[2024-09-06 08:00] VITALS: PULSE 69; RESP 16; O2SAT 97
[2024-09-06] MEDS: FAMOTIDINE 10 MG TABLET PO (08:32)
[2024-09-06] MEDS: ASPIRIN 81 MG ENTERIC TABLET PO (08:32)
[2024-09-06] MEDS: EZETIMIBE 10 MG TABLET PO (08:32)
[2024-09-06] MEDS: MULTIVITAMINS THERAPEUTIC TAB (*BKC) 1 TABLET PO (08:32)
[2024-09-06] MEDS: MONTELUKAST SODIUM 10 MG TABLET PO (08:32)
[2024-09-06] MEDS: CALCIUM CARBONATE (OSCAL) 500 MG TABLET PO (08:32)
[2024-09-06] MEDS: ENOXAPARIN 40 MG/0.4 ML SYRINGE SUB-Q (08:32)
[2024-09-06 08:33] VITALS: PULSE 69
[2024-09-06] MEDS: carvediloL 25 MG TABLET PO (08:33)
[2024-09-06 08:47] LABS: Glucose Point of Care 126 mg/dl (65-105)
[2024-09-06 11:51] LABS: Glucose Point of Care 156 mg/dl (65-105)
--- NOTE | 2024-09-06 12:04 | PM.DS ---
DS: Admitting Diagnosis Discharge Date 09/06/2024 Admitting Diagnosis UTI due to ESBL Hyponatremia Macrocytic anemia Type 2 diabetes Hypertension Constipation DS: Discharge Diagnosis Discharge Diagnosis (1) Urinary tract infection due to extended-spectrum beta lactamase (ESBL) producing Escherichia coli: Code(s): N39.0 - Urinary tract infection, site not specified; B96.29 - Other Escherichia coli [E. coli] as the cause of diseases classified elsewhere; Z16.12 - Extended spectrum beta lactamase (ESBL) resistance Status: Acute (2) Hyponatremia: Code(s): E87.1 - Hypo-osmolality and hyponatremia Status: Acute (3) Macrocytic anemia: Code(s): D53.9 - Nutritional anemia, unspecified Status: Acute (4) Type 2 diabetes mellitus: Code(s): E11.9 - Type 2 diabetes mellitus without complications Status: Acute (5) Hypertension: Code(s): I10 - Essential (primary) hypertension Status: Acute (6) Constipation: Code(s): K59.00 - Constipation, unspecified Status: Acute DS: Summary Hospital Course Reason for hospitalization: UTI due to ESBL Hyponatremia Macrocytic anemia Type 2 diabetes Hypertension Constipation Hospital Course: 73-year-old female with history of urinary tract infections, hypertension, hyperlipidemia, and type 2 diabetes mellitus who presented to the emergency department via EMS from home for evaluation of urinary symptoms. She was not meeting SIRs criteria on admission. Urinalysis was concerning for UTI. Patient had a prior urine culture from 08/15 which showed E coli ESBL. She was started on IV meropenem at time of admission. A new urine culture was obtained and positive for Ecoli with ESBL. Patient completed her course of IV meropenem during admission. Patient was noted to have hyponatremia and hypochloremia likely secondary to dehydration due to decreased appetite and poor oral intake. She was started on IV fluids and both resolved. Patient noted to have macrocytic anemia which was at baseline. Anemia labs were drawn and all were within normal limits. On admission patient was on several antihypertensives including losartan, coreg, imdur, and hydralazine. Her imdur and hydralazine were placed on hold and her blood pressures remained stable. Patient is to continue holding these medications at discharge and follow up with her PCP about resuming them. Prior to discharge discussed this with patient and the importance of monitoring her blood pressures. She states understanding. Patient was ambulating throughout her room during her inpatient stay. Prior to discharge she had no complaints denying all urinary symptoms as well as chest pain, shortness of breath, nausea/vomiting and abdominal pain. Patient discharged home in stable condition. She is to follow up with her PCP in 1 week. Status at Discharge Functional status at discharge: independent ambulation Time Spent with Patient Time attestation: Total time spent providing and/or coordinating discharge services: Time spent: Greater than 30 minutes Exam Narrative: AF HR 71 RR 16 SpO2 97 BP 129/68 General: female in no acute respiratory distress who is nontoxic appearing, lying semi recumbent in bed. HEENT: Normocephalic. Atraumatic. Extraocular movement intact. No facial asymmetry. Chest: Lungs are clear to auscultation bilaterally. No wheezes or crackles. CV: Heart was regular rate and rhythm. S1-S2. No murmurs, gallops, or rubs. Abd: Abdomen was soft. Nontender. Nondistended. Positive bowel sounds. No organomegaly or masses. DS: Data Data Completed and Pending Completed studies during hospitalization: abdomen/pelvis CT Labs on day of discharge: Labs from last 24 hours 09/06/24 09/06/24 09/06/24 11:48 08:45 05:43 WBC 10.2 H RBC 2.49 L Hgb 8.8 L Hct 26.3 L MCV 105.6 H MCH 35.3 H MCHC 33.5 RDW 17.2 H Plt Count 221 MPV 8.6 Immature Gran % (Auto) Not Re
== END 2024-09-06 12:47 | disposition home or self-care (01) | DRG 690 ==
LOC: ANHED 15:55 → ANH3MED 16:52
PROVIDERS: Nurse Practitioner Family; Physician Assistant; Admitting Provider General Practice; Emergency Provider Physician Assistant; PCP Internal Medicine Gastroenterology; Visit Provider Student in an Organized Health Care Education/Training Program
DX: N39.0 Urinary tract infection, site not specified (principal); E87.1 Hypo-osmolality and hyponatremia; Z16.12 Extended spectrum beta lactamase (ESBL) resistance; B96.20 Unspecified Escherichia coli [E. coli] as the cause of diseases classified elsewhere; D53.9 Nutritional anemia, unspecified; E11.9 Type 2 diabetes mellitus without complications; I10 Essential (primary) hypertension; K59.00 Constipation, unspecified; E86.0 Dehydration; E78.5 Hyperlipidemia, unspecified; H40.9 Unspecified glaucoma; Z96.642 Presence of left artificial hip joint; Z98.42 Cataract extraction status, left eye; Z98.41 Cataract extraction status, right eye; Z98.1 Arthrodesis status; Z90.710 Acquired absence of both cervix and uterus; Z87.891 Personal history of nicotine dependence; Z79.82 Long term (current) use of aspirin; Z79.4 Long term (current) use of insulin
CPT/HCPCS: 36415; 74177; 80048; 80053; 81001; 82570; 82607; 82728; 82746; 82948; 83036; 83540; 83550; 83930; 83935; 84300; 84443; 84540; 85025; 85046; 87040; 87086; 87186; 96361; 96365; 96375; 96376; 99285; A9270; G0378; J1650; J1815; J2185; J2270; J2405; J7030; J7040; Q9967

== ENCOUNTER 2024-09-08 11:52 | Emergency (ER) | payer MEDICARE, MEDICAID, SELFPAY ==
[2024-09-08] VITALS (15 sets, daily range): BP systolic 123–138; BP diastolic 61–66; PULSE 67–83; RESP 15–20; TEMP 36.7; O2SAT 99–100
--- NOTE | ~2024-09-08 | CT_ITS ---
CT abdomen pelvis w con Ordering provider: Moy Slade MD History: 73 years Female with . Diffuse abdominal pain . Comparison: August 30, 2024 Technique: CT abdomen and pelvis with IV and without oral contrast. Automated exposure control and it erative reconstruction technique were employed. The dose-length product was 311.16 mGy-cm. 100 mL Omn ipaque 350 was given IV. Findings: VISUALIZED LOWER CHEST: Dependent atelectatic changes. Minimal bilateral pleural effusion more on the right side. Trace of pericardial effusion or pericardial thickening seen anteriorly. UPPER ABDOMINAL ORGANS: Liver: Normal. Gallbladder: Normal. Spleen: Normal. Stomach/duodenum: Normal. Pancreas: Normal. Slightly prominent pancreatic duct. Follow-up advised. Adrenals: Normal. Kidneys: Normal. PELVIC ORGANS: The bladder shows slightly thickened wall. Evaluation for cystitis advised. Artifacts are seen in the area. BOWEL AND MESENTERY: Colon: Mild sigmoid diverticulosis without diverticulitis. The appendix is not demonstrated. Small Bowel: Normal. No obstruction. Peritoneum/mesentery: No free air or free fluid. No mesenteric lymphadenopathy. RETROPERITONEUM: Mild atheromatous disease of the abdominal aorta. No retroperitoneal lymphadenopat hy. MUSCULOSKELETAL: Superficial soft tissues: Thickening of the skin is seen in the anterior abdominal wall bilaterally i n the area of the pelvis which may be inflammatory. Clinical correlation advised. The thickness on th e right is 1.5 cm and on the left 1.5 cm. Otherwise, 0The superficial soft tissues are normal. Bones: Age appropriate degenerative changes of the spine. Left hip total arthroplasty. Pubic symphysi tis. Sclerotic changes are seen in the iliac bones medially which may be due to bilateral sacroiliiti s. Follow-up advised. Levoscoliosis. IMPRESSION: 1. No evidence of appendicitis, diverticulitis or intestinal obstruction. 2. Slightly thickened anterior abdominal wall bilaterally. Clinical correlation advised. 3. Slightly prominent pancreatic duct. Follow-up advised. 4. Slightly thickened wall of the urinary bladder. Clinical correlation advised. Reviewed, dictated and finalized at location A. IMPRESSION: 1. No evidence of appendicitis, diverticulitis or intestinal obstruction. 2. Slightly thickened anterior abdominal wall bilaterally. Clinical correlatio n advised. 3. Slightly prominent pancreatic duct. Follow-up advised. 4. Slightly thickened wall of the urinary bladder. Clinical correlation advise d.
--- NOTE | ~2024-09-08 | XR_ITS ---
EXAMINATION: XR chest 2V 09/08/2024 12:52 INDICATION: Uncontrolled low blood pressure PROCEDURE: 2 view chest COMPARISON: 08/15/2024 FINDINGS: The lungs are clear. The cardiomediastinal silhouette is within normal limits. There are no pleural effusions. There is no pneumothorax suspected. There is severe degenerative change of th e glenohumeral joints. IMPRESSION: 1: NO ACUTE CARDIOPULMONARY DISEASE. Reviewed, dictated and finalized at location B.
--- NOTE | 2024-09-08 12:11 | ECG_ITS ---
Test Date: 2024-09-08 12:21:28 Measurements Intervals Mccrory Rate: 69 P: 46 MA: 135 QRS: 38 QRSD: 81 T: 49 QT: 363 QTc: 389 Interpretive Statements SINUS RHYTHM NONSPECIFIC T-WAVE ABNORMALITY BORDERLINE ECG Compared to ECG 08/15/2024 07:52:31 NO DIFFERENCE Electronically Signed On 09-09-2024 08:50:08 CDT by Heriberto Bernal M.D.
[2024-09-08 12:17] LABS: Hematocrit 27.4 % (37.0-47.0); Mean Corpuscular HGB Conc 32.8 g/dl (32-36); Mean Corpuscular Hemoglobin 34.7 pg (26-34); Mean Corpuscular Volume 105.8 fl (80-100); Mean Platelet Volume 8.8 fl (7.4-10.4); Platelet Count Result 221 k/mm3 (150-375); Red Blood Count 2.59 M/mm3 (4.2-5.4); Red Cell Distribution Width 17.7 % (11.5-14.5); White Blood Count 11.8 K/mm3 (4.5-10.0)
[2024-09-08 12:29] LABS: Glucose Point of Care 153 mg/dl (65-105)
[2024-09-08 12:32] LABS: Alanine Aminotransferase 53 U/L (6-35); Albumin Level 3.9 g/dL (3.5-5.1); Alkaline Phosphatase 124 U/L (38-126); Anion Gap 5 mmol/L (4-12); Aspartate Amino Transferase 68 U/L (14-36); Bilirubin,Total 0.6 mg/dL (0.2-1.3); Blood Urea Nitrogen 10 mg/dL (7-17); Calcium 9.5 mg/dL (8.4-10.2); Carbon Dioxide 28 mmol/L (22-30); Chloride 104 mmol/L (98-107); Estimated CRCL calculation 60 ml/min; Estimated Glomerular Filt Rate > 60; Glucose 151 mg/dL (65-110); Sodium 137 mmol/L (137-145)
[2024-09-08 12:37] LABS: Band Neutrophils Percent 2 % (0-6); Eosinophils Absolute Manual 0.11 K/mm3 (0.02-0.50); Eosinophils Percent Manual 1 % (0-4); Monocytes Absolute Manual 0.11 K/mm3 (0.1-0.90); Monocytes Percent Manual 1 % (3-9); Neutrophils Absolute Manual 8.26 K/mm3 (1.7-7.2); Neutrophils Percent Manual 68 % (46-73); Platelet Estimate Adequate (Adequate); Total Cells Counted 100
[2024-09-08 12:38] LABS: Anisocytosis 1+; Hypochromasia 1+; Ovalocytes 1+; Schistocytes Rare
[2024-09-08 13:12] LABS: Add Urine Microscopic? NO; Appearance Urine Clear (Clear); Bilirubin Urine Negative (Negative); Blood Urine Negative (Negative); Color Urine Yellow (Yellow); Glucose Urine UA Negative (Negative); Ketones Urine Negative (Negative); Leukocyte Esterase Ur Negative LEU/UL (Negative); Nitrate Urine Negative (Negative); Protein Urine Negative (Negative); Specific Grav Ur 1.009 (1.001-1.035); Urobilinogen Urine 0.2 mg/dL (<2.0); pH Urine 7.5 (5.0-9.0)
[2024-09-08 13:26] LABS: Influenza A QL RT-PCR Negative (Negative); Influenza B QL RT-PCR Negative (Negative); RSV RNA, RT-PCR Negative (Negative); SARS-CoV-2 RNA PCR Negative (Negative)
--- NOTE | 2024-09-08 13:46 | ED.GENADULT ---
HPI - General Adult General Chief complaint: Weakness Stated complaint: weakness Time Seen by Provider: 09/08/24 12:24 History of Present Illness HPI narrative: 73-year-old female present to the emergency department for evaluation for diffuse abdominal discomfort. Patient states she is a type 2 diabetic but states that blood sugars have been running low the past few days. Patient's blood sugar is 150 upon arrival to the emergency department. Patient denies any other pain or complaint. Does well-appearing. Related Data Home Medications Medication Instructions Recorded Confirmed aspirin 81 mg tablet,delayed 81 mg PO DAILY 07/29/20 08/30/24 release calcium carbonate (Calcium 600) 600 mg PO DAILY 07/29/20 08/30/24 cholecalciferol (vitamin D3) 25 75 mcg PO 2XW 07/29/20 08/30/24 mcg (1,000 unit) capsule (Vitamin D3) cyanocobalamin (vitamin B-12) 3,000 mcg PO 2XW 07/29/20 08/30/24 1,000 mcg tablet (Vitamin B-12) insulin detemir U-100 100 unit/mL 25 unit subcut BID 07/29/20 08/30/24 (3 mL) subcutaneous pen (Levemir FlexTouch U-100 Insulin) lifitegrast 5 % eye drops in a 1 drp ophthalmic (eye) DIRECTED 07/29/20 08/30/24 dropperette (Xiidra) PRN Dry Eye(S) losartan 100 mg tablet 25 mg PO BID 07/29/20 08/30/24 multivitamin 1 tablet PO DAILY 07/29/20 08/30/24 spironolactone 50 mg tablet 50 mg PO DAILY 07/29/20 08/30/24 carvedilol 25 mg tablet 25 mg PO BID 08/30/24 08/30/24 diazepam 5 mg tablet 5 mg PO DAILY PRN Insomnia 08/30/24 08/30/24 evolocumab 140 mg/mL subcutaneous See Rx Instructions .Route .COMPLEX 08/30/24 08/30/24 pen injector (Madhav Olvera) ezetimibe 10 mg tablet 10 mg PO DAILY 08/30/24 08/30/24 famotidine 40 mg tablet 10 mg PO DAILY 08/30/24 08/30/24 hydralazine 50 mg tablet 50 mg PO BID 08/30/24 08/30/24 isosorbide mononitrate 30 mg 30 mg PO DAILY 08/30/24 08/30/24 tablet,extended release 24 hr montelukast 10 mg tablet 10 mg PO DAILY 08/30/24 08/30/24 sertraline 100 mg tablet 100 mg PO HS 08/30/24 08/30/24 Allergies Allergy/AdvReac Type Severity Reaction Status Date / Time No Known Allergies Allergy Verified 09/08/24 12:03 Review of Systems Review of Systems: All systems reviewed & are unremarkable except as noted in HPI and below PMFSH Past Medical History Medical History Diverticulitis Glaucoma Hyperlipidemia Hypertension Type 2 diabetes mellitus Surgical History Surgical History History of bilateral cataract extraction History of cardiac catheterization (11/2019) ?negative? per patient report History of fusion of cervical spine (2018) C4-C7 History of hysterectomy History of total left hip arthroplasty Social History Social History (Updated 08/30/24 @ 20:06 by Casi Mullen PA-C) Social History: Surrogate medical decision maker: Jaime Almonte, son ([phone]). Code status: Full code. Smoking status: Former smoker Tobacco type: cigarettes Smoking end date: 11/21/94 Alcohol intake: never Substance use: never Do You Feel Safe in your Home?: Yes Lack of Transportation: No Lack of Food: Never True Current Housing: Decline to Answer Concerned About Future Housing: Decline to Answer Difficulty Paying Gas/Electric Bills: Decline to Answer Difficulty Paying for Meds: Decline to Answer Currently Unemployed: Decline to Answer Education: Decline to Answer Difficulty w/ Childcare or Family Care: Decline to Answer Spiritual care concerns: No Exam Narrative: APPEARANCE: Well appearing, no pain, no distress, well-nourished. HEAD: normocephalic, atraumatic. EYES: PERRLA/EOMI, conjunctivae clear. NOSE: Normal no drainage EARS:TMS clear with good light reflex. THROAT: Pharynx clear, no exudate. NECK: Supple. No adenopathy, no masses. RESPIRATORY: Airway patent, respirations nonlabored. Clear to auscultation bilate
== END 2024-09-08 16:38 | disposition home or self-care (01) ==
PROVIDERS: Emergency Provider Emergency Medicine; PCP Internal Medicine Gastroenterology
DX: R10.9 Unspecified abdominal pain (principal); E11.9 Type 2 diabetes mellitus without complications; Z79.82 Long term (current) use of aspirin; E78.5 Hyperlipidemia, unspecified; I10 Essential (primary) hypertension; Z79.4 Long term (current) use of insulin; Z87.891 Personal history of nicotine dependence; Z20.822 Contact with and (suspected) exposure to COVID-19
CPT/HCPCS: 36415; 71046; 74177; 80053; 81003; 82948; 85025; 87637; 93005; 99284; Q9967

== ENCOUNTER 2024-11-01 01:27 | Emergency (ER) | payer MEDICARE, MEDICAID, SELFPAY ==
--- NOTE | ~2024-11-01 | CT_ITS ---
CT of the Abdomen and Pelvis: Indication: Abdominal pain Technique: 2.5 mm axial scans were obtained through the abdomen and pelvis following intravenous adm inistration of 100 cc of Omnipaque 350. Dose reduction technique was used on this scan by utilizing a utomated exposure control and iterative reconstruction technique. The dose-length product (DLP) was 3 09.88 mGy-cm. COMPARISON: 09/08/2024 Findings: Scans through the lung bases are unremarkable. The liver, spleen, pancreas, gallbladder, adrenals and kidneys are within normal limits. There are at herosclerotic calcifications of the aorta. No lymphadenopathy. No bowel obstruction or bowel wall thickening. There is no evidence to suggest acute appendicitis. Images through the pelvis are degraded by streak artifact from left hip arthroplasty. No ascites evid ent.. Diffuse urinary bladder wall thickening present. No pelvic mass evident. Impression: Findings compatible with cystitis. Reviewed, dictated and finalized at [facility]. TUTOR Impression: Findings compatible with cystitis.
[2024-11-01 01:27] VITALS: BP 133/55; PULSE 94; RESP 19; TEMP 36.6; O2SAT 100
[2024-11-01 01:32] VITALS: BP 133/55; PULSE 93; RESP 17; TEMP 36.6; O2SAT 100
[2024-11-01 01:41] LABS: Hematocrit 24.3 % (37.0-47.0); Hemoglobin 7.8 g/dL (12.0-15.0); Mean Corpuscular HGB Conc 32.1 g/dl (32-36); Mean Corpuscular Hemoglobin 34.2 pg (26-34); Mean Corpuscular Volume 106.6 fl (80-100); Mean Platelet Volume 8.9 fl (7.4-10.4); Platelet Count Result 424 k/mm3 (150-375); Red Blood Count 2.28 M/mm3 (4.2-5.4); Red Cell Distribution Width 18.9 % (11.5-14.5); White Blood Count 15.4 K/mm3 (4.5-10.0)
[2024-11-01 01:51] LABS: Alanine Aminotransferase 20 U/L (6-35); Albumin Level 3.2 g/dL (3.5-5.1); Alkaline Phosphatase 154 U/L (38-126); Anion Gap 1 mmol/L (4-12); Aspartate Amino Transferase 47 U/L (14-36); Bilirubin,Total 0.8 mg/dL (0.2-1.3); Blood Urea Nitrogen 4 mg/dL (7-17); Calcium 8.8 mg/dL (8.4-10.2); Carbon Dioxide 26 mmol/L (22-30); Chloride 110 mmol/L (98-107); Estimated CRCL calculation 54 ml/min; Estimated Glomerular Filt Rate > 60; Glucose 156 mg/dL (65-110); Lipase 90 U/L (23-300); Magnesium 1.9 mg/dL (1.6-2.3); Potassium 3.3 mmol/L (3.4-5.0); Sodium 137 mmol/L (137-145)
[2024-11-01 01:52] LABS: Lactic Acid Reflex 2.3 mmol/L (0.7-2.0)
[2024-11-01 02:45] LABS: Band Neutrophils Percent 6 % (0-6); Basophils Percent Manual 2 % (0-1); Blastocytes 2 %; Lymphocytes Absolute Manual 4.15 K/mm3 (1.1-4.5); Metamyelocytes Percent 4 %; Monocytes Absolute Manual 0.92 K/mm3 (0.1-0.90); Monocytes Percent Manual 6 % (3-9); Neutrophils Absolute Manual 8.47 K/mm3 (1.7-7.2); Neutrophils Percent Manual 49 % (46-73); Nucleated Red Blood Cells 2 %; Platelet Estimate Increased (Adequate); Promyelocytes Percent 4 %; Total Cells Counted 100
[2024-11-01 02:46] LABS: Acanthocytes 1+; Anisocytosis 1+; Burr Cells 1+; Ovalocytes 1+
[2024-11-01 02:52] LABS: Howell Jolly Bodies 1+; Polychromasia 1+; Schistocytes Rare
[2024-11-01 02:53] LABS: Atypical Lymphocytes Present
[2024-11-01 03:00] LABS: Add Urine Microscopic? YES; Appearance Urine Turbid (Clear); Bacteria Urine 4+ /hpf; Bilirubin Urine Negative (Negative); Blood Urine 2+ (Negative); Color Urine Yellow (Yellow); Glucose Urine UA Negative (Negative); Ketones Urine Negative (Negative); Leukocyte Esterase Ur 3+ LEU/UL (Negative); Need Manual Microscopic Reviewed; Nitrate Urine Positive (Negative); Protein Urine 1+ mg/dL (Negative); RBC Urine 21-50 /hpf (0-2); Specific Grav Ur 1.005 (1.001-1.035); Squamous Epithelial Cell Urine Occasional /hpf (Few); Urobilinogen Urine 0.2 mg/dL (<2.0); WBC Urine >100 /hpf (0-3); pH Urine 5.5 (5.0-9.0)
[2024-11-01] MEDS: MORPHINE SULFATE (*CRX) 2 MG/ML INJ IV PUSH (03:02)
[2024-11-01] MEDS: SODIUM CHLORIDE 0.9% IV 1,000 ML 999 ML IV CONT (03:02)
[2024-11-01] MEDS: ONDANSETRON INJ 4 MG/2 ML VIAL IV PUSH (03:02)
--- NOTE | 2024-11-01 03:49 | ED_ITS ---
HPI - Abdominal Pain General Chief Complaint: Abdominal Pain Stated Complaint: abd pain History of Present Illness HPI narrative: Patient is a 73-year-old female who presents to the emergency department this evening complaining of dysuria. Patient states that she recently finished a course of oral antibiotics, ciprofloxacin for a urinary tract infection but states that despite finishing was antibiotic 1 week ago she continues to have worsening dysuria. Patient states that her primary care physician also gave her an estradiol vaginal cream to use but she has not noticed any improvement. Currently denies any abdominal pain, nausea vomiting, constipation/diarrhea, melena or hematochezia, fevers or chills. Patient also denies any chest pain shortness of breath. No additional symptoms or concerns at this time. Related Data Home Medications ?Medication ?Instructions ?Recorded ?Confirmed ?Last Taken ?Type aspirin 81 mg tablet,delayed 81 mg PO DAILY 07/29/20 08/30/24 07/23/20 History release calcium carbonate (Calcium 600) 600 mg PO DAILY 07/29/20 08/30/24 Unknown History cholecalciferol (vitamin D3) 25 75 mcg PO 2XW 07/29/20 08/30/24 Unknown History mcg (1,000 unit) capsule (Vitamin D3) cyanocobalamin (vitamin B-12) 3,000 mcg PO 2XW 07/29/20 08/30/24 Unknown History 1,000 mcg tablet (Vitamin B-12) lifitegrast 5 % eye drops in a 1 drp ophthalmic (eye) DIRECTED 07/29/20 08/30/24 Unknown History dropperette (Xiidra) PRN Dry Eye(S) losartan 100 mg tablet 25 mg PO BID 07/29/20 08/30/24 Unknown History multivitamin 1 tablet PO DAILY 07/29/20 08/30/24 Unknown History spironolactone 50 mg tablet 50 mg PO DAILY 07/29/20 08/30/24 Unknown History carvedilol 25 mg tablet 25 mg PO BID 08/30/24 08/30/24 Unknown History diazepam 5 mg tablet 5 mg PO DAILY PRN Insomnia 08/30/24 08/30/24 Unknown History evolocumab 140 mg/mL subcutaneous See Rx Instructions .Route .COMPLEX 08/30/24 08/30/24 08/27/24 08:00 History pen injector (Madhav Olvera) ezetimibe 10 mg tablet 10 mg PO DAILY 08/30/24 08/30/24 Unknown History famotidine 40 mg tablet 10 mg PO DAILY 08/30/24 08/30/24 Unknown History hydralazine 50 mg tablet 50 mg PO BID 08/30/24 08/30/24 Unknown History isosorbide mononitrate 30 mg 30 mg PO DAILY 08/30/24 08/30/24 Unknown History tablet,extended release 24 hr montelukast 10 mg tablet 10 mg PO DAILY 08/30/24 08/30/24 Unknown History sertraline 100 mg tablet 100 mg PO HS 08/30/24 08/30/24 Unknown History insulin detemir U-100 100 unit/mL 15 unit subcut BID 10/31/24 Unknown History (3 mL) subcutaneous pen (Levemir FlexTouch U-100 Insulin) Allergies Allergy/AdvReac Type Severity Reaction Status Date / Time No Known Allergies Allergy Verified 11/01/24 01:31 Review of Systems 2 Review of Systems: All systems are reviewed and are negative unless stated otherwise in the HPI. [facility] Past Medical History Medical History Glaucoma Diverticulitis Hyperlipidemia Hypertension Type 2 diabetes mellitus Surgical History Surgical History History of bilateral cataract extraction History of cardiac catheterization (11/2019) ?negative? per patient report History of hysterectomy History of fusion of cervical spine (2019) C4-C7 History of total left hip arthroplasty Family History Family History Mother Diabetes mellitus Social History Social History Social History: Surrogate medical decision maker: Jaime Almonte, son ([phone]). Code status: Full code. Smoking status: Former smoker Tobacco type: cigarettes Smoking end date: 11/21/94 Alcohol intake: never Substance use: never Do You Feel Safe in your Home?: Yes Lack of Transportation: No Lack of Food: Never True Current Housing: Decline to Answer Concerned About Future Housing: Decline to Answer Difficulty Paying Gas/Electric Bills: Decline to Answer Difficulty Paying for Meds: Decline to Answer Currently Unemployed: Decline to Answer Education: Decline to Answer Difficulty w/ Childcare or Family Care: Decline to Answer Spiritual care concerns: No Exam 2 Narrative: General: Alert, awake, afebrile, in no acute distress. HEENT: PERRL, no rhinorrhea, no post nasal drip, oropharynx clear. Neck: Trachea midline, no JVD, no lymphadenopathy. Cardiovascular: Regular rate and rhythm, no murmurs, rubs or gallops, no peripheral edema. Respiratory: Clear to auscultation bilaterally, no tachypnea, no wheezing, no rhonchi, no rubs, no respiratory distress. Abdomen: Soft, nontender, nondistended, no rebound, no guarding, no peritoneal signs. Musculoskeletal: No joint swelling or deformity, normal muscle tone. Skin: No rashes or petechia, no signs of infection. Psychiatric: Alert and oriented, normal behavior and judgment for situation. Neurological: Alert and oriented to person, place, and time. Follows all commands. No focal deficits, speech is clear and fluent. Course Vital Signs Vital signs: Vital Signs Temperature 97.9 F 11/01/24 01:27 Pulse Rate 94 11/01/24 01:27 Respiratory Rate 19 11/01/24 01:27 Blood Pressure 133/55 L 11/01/24 01:27 Pulse Oximetry 100 11/01/24 01:27 Oxygen Delivery Room Air 11/01/24 01:27 Temperature 97.9 F 11/01/24 01:32 Pulse Rate 93 11/01/24 01:32 Respiratory Rate 17 11/01/24 01:32 Blood Pressure 133/55 L 11/01/24 01:32 Pulse Oximetry 100 11/01/24 01:32 Oxygen Delivery Room Air 11/01/24 01:27 MDM - Abdominal Pain MDM Narrative Medical decision making narrative: The patient was evaluated by myself in the emergency department. History is obtained from patient who is an independent historian and physical exam was performed. External medical records were reviewed at this time. IV was established and pertinent tests were ordered. Patient was administered 2 mg of IV morphine for pain and 4 mg of IV Zofran for nausea. She was also administered 1 L IV fluid bolus with normal saline. Patient was also administered 200 mg of oral peridium at this time. Laboratory results obtained revealing hemoglobin of 7.8 which is around patient's baseline hemoglobin which runs around 8. Leukocytosis of 15.4, lactic acid 2.3, potassium 3.3 otherwise unremarkable. Patient was administered 40 mEq of oral potassium at this time. Urinalysis revealed nitrite positive urinary tract infection. Patient's urine culture from August 30 of this year revealed multi-drug resistant E coli which is susceptible to Zosyn, Augmentin, and meropenem. Patient was informed of these findings at bedside and administered 4.5 g of IV Zosyn at this time. She was informed that she will be discharged home on oral antibiotic, Augmentin to take for the next week and patient is agreeable. Imaging studies obtained included CT abdomen pelvis with IV contrast which was independently interpreted by me revealing bladder wall thickening consistent with cystitis otherwise no acute process, which is pending final radiology interpretation. Differential diagnosis considerations include cystitis, UTI, pyelonephritis, renal colic. Comorbidities impacting this visit include recurrent urinary tract infections. I have evaluated and discussed social determinants of health with the patient that could potentially impact subsequent diagnosis and treatment plans. On repeat assessment of the patient, reevaluation revealed that the patient is doing well and is in no acute distress. Patient symptoms have improved since she arrived to our emergency department. Repeat vital signs were all reviewed and noted to be stable. Differential diagnosis and treatment plan were discussed with the patient at bedside. Patient agrees with discussion and after shared medical decision making agrees with discharge. All questions were answered to the patient's satisfaction. Patient will follow up with her PCP in 1 week after completion of her oral antibiotics for a repeat urinalysis. Scripts for Augmentin and Pyridium were sent to patient's pharmacy to take as prescribed. Patient was provided with strict return precautions and instructed to return to the emergency department if any new or worsening symptoms develop. The patient was discharged in stable condition. Lab Data 11/01/24 01:33 11/01/24 01:33 Labs: Lab Results 11/01/24 11/01/24 Range/Units 01:33 01:51 WBC 15.4 H (4.5-10.0) K/mm3 RBC 2.28 L (4.2-5.4) M/mm3 Hgb 7.8 L (12.0-15.0) g/dL Hct 24.3 L (37.0-47.0) % MCV 106.6 H (80-100) fl MCH 34.2 H (26-34) pg MCHC 32.1 (32-36) g/dl RDW 18.9 H (11.5-14.5) % Plt Count 424 H D (150-375) k/mm3 MPV 8.9 (7.4-10.4) fl Immature Gran % (Auto) Not Reportable Neut % (Auto) Not Reportable Lymph % (Auto) Not Reportable Falls % (Auto) Not Reportable Eos % (Auto) Not Reportable Baso % (Auto) Not Reportable Lymph # (Auto) Not Reportable Falls # (Auto) Not Reportable Eos # (Auto) Not Reportable Baso # (Auto) Not Reportable Abs Immat Gran (auto) Not Reportable Absolute Neuts (auto) Not Reportable Absolute Nucleated RBC Not Reportable Total Counted 100 Neutrophils % (Manual) 49 (46-73) % Band Neutrophils % 6 (0-6) % Lymphocytes % (Manual) 27.0 (18-44) % Monocytes % (Manual) 6 (3-9) % Basophils % (Manual) 2 H (0-1) % Metamyelocytes % 4 % Promyelocytes % (Man) 4 % Nucleated RBC % Not Reportable Abs Neuts (Manual) 8.47 H (1.7-7.2) K/mm3 Abs Lymphs (Manual) 4.15 (1.1-4.5) K/mm3 Abs Monocytes (Manual) 0.92 H (0.1-0.90) K/mm3 Abs Basophils (Manual) 0.30 H (0.0-0.1) K/mm3 Nucleated RBCs 2 % Atypical Lymphocytes Present Blast Cells 2 % Platelet Estimate Increased (Adequate) Polychromasia 1+ Anisocytosis 1+ Ovalocytes 1+ Oliveira-Aulander Bodies 1+ Suzi Cells 1+ Acanthocytes (Spur) 1+ Schistocytes Rare Sodium 137 (137-145) mmol/L Potassium 3.3 L (3.4-5.0) mmol/L Chloride 110 H (98-107) mmol/L Carbon Dioxide 26 (22-30) mmol/L Anion Gap 1 L (4-12) mmol/L BUN 4 L D (7-17) mg/dL Creatinine 0.70 (0.7-1.0) mg/dL Estim Creat Clear Calc 54 ml/min Estimated GFR > 60 (59 - ) Glucose 156 H (65-110) mg/dL Lactic Acid 2.3 H (0.7-2.0) mmol/L Calcium 8.8 (8.4-10.2) mg/dL Magnesium 1.9 (1.6-2.3) mg/dL Total Bilirubin 0.8 (0.2-1.3) mg/dL AST 47 H (14-36) U/L ALT 20 (6-35) U/L Alkaline Phosphatase 154 H (38-126) U/L Total Protein 7.0 (6.3-8.2) g/dL Albumin 3.2 L (3.5-5.1) g/dL Lipase 90 (23-300) U/L Urine Color Yellow (Yellow) Urine Appearance Turbid H (Clear) Urine pH 5.5 (5.0-9.0) Ur Specific [place] 1.005 (1.001-1.035) Urine Protein 1+ H (Negative) mg/dL Urine Glucose (UA) Negative (Negative) mg/dL Urine Ketones Negative (Negative) mg/dL Ur Blood (Man) 2+ H (Negative) Urine Nitrate Positive H (Negative) Urine Bilirubin Negative (Negative) Urine Urobilinogen 0.2 (<2.0) mg/dL Add Ur Microanalysis Reviewed Leukocyte Esterase Rfl 3+ H (Negative) RACHAEL/UL Urine RBC 21-50 H (0-2) /hpf Urine WBC >100 H (0-3) /hpf Ur Squamous Epith Cells Occasional (Few) /hpf Urine Bacteria 4+ H /hpf Urine Casts 11-20 Discharge Plan Discharge Clinical Impression: Urinary tract infection due to extended-spectrum beta lactamase (ESBL) producing Escherichia coli Patient Disposition: Home, Self-Care Condition: Improved Instructions: Antibiotic Form, Urinary Tract Infection in Older Adults (ED) Additional Instructions: Please take the prescribed antibiotic as instructed for urinary tract infection. Follow-up with your primary care physician within the next 3-5 days and return to the ED if any new or worsening symptoms develop. Patient Language: [place] Prescriptions: New amoxicillin-pot clavulanate 875-125 mg tablet 1 tablet PO Q12H 7 Days Qty: 14 0RF phenazopyridine [Pyridium] 200 mg tablet 200 mg PO TID Qty: 3 0RF No Action Levemir FlexTouch U100 Insulin 100 unit/mL (3 mL) insulin pen 15 unit SUBCUT BID Gvoke HypoPen 2-Pack 1 mg/0.2 mL auto-injector 1 mg subcut ONCE Qty: 0.4 0RF Rx Instructions: as a single dose; may repeat once after 15 minutes if no response glucose 4 gram tablet,chewable 16 g PO Q15M PRN (Reason: hypoglycemia) Qty: 360 0RF Rx Instructions: until symptoms of low blood sugar are controlled multivitamin Tablet 1 tablet PO DAILY cyanocobalamin (vitamin B-12) [Vitamin B-12] 1,000 mcg Tablet 3,000 mcg PO 2XW aspirin 81 mg Tablet,Delayed Release (Dr/Ec) 81 mg PO DAILY calcium carbonate [Calcium 600] 600 mg calcium (1,500 mg) Tablet 600 mg PO DAILY losartan 100 mg Tablet 25 mg PO BID spironolactone 50 mg Tablet 50 mg PO DAILY cholecalciferol (vitamin D3) [Vitamin D3] 25 mcg (1,000 unit) Capsule 75 mcg PO 2XW Xiidra 5 % Dropperette 1 drp ophthalmic (eye) DIRECTED PRN (Reason: Dry Eye(S)) carvedilol 25 mg tablet 25 mg PO BID famotidine 40 mg tablet 10 mg PO DAILY isosorbide mononitrate 30 mg tablet extended release 24 hr 30 mg PO DAILY montelukast 10 mg tablet 10 mg PO DAILY hydralazine 50 mg tablet 50 mg PO BID ezetimibe 10 mg tablet 10 mg PO DAILY sertraline 100 mg tablet 100 mg PO HS diazepam 5 mg tablet 5 mg PO DAILY PRN (Reason: Insomnia) Repatha SureClick 140 mg/mL pen injector See Rx Instructions .ROUTE .COMPLEX Rx Instructions: 140 mg subcutaneously every three weeks. Last taken on 08/27/24 Follow-up/Referrals: Hardy,Eduardo Jean-Baptiste MD [Primary Care Provider] - 1 Week Time of Disposition: 04:27
[2024-11-01] MEDS: PIPERACILLIN/TAZ 4.5G/NS 100ML 4.5 GM/100 ML BAG IVPB (04:08)
[2024-11-01] MEDS: PHENAZOPYRIDINE HCL 100 MG TABLET 200 MG PO (04:08)
[2024-11-01 04:39] LABS: Reflex Lactic Acid Yes or No Add Lactic
[2024-11-01 04:55] VITALS: BP 122/83; PULSE 86; RESP 19; O2SAT 99
== END 2024-11-01 04:55 | disposition home or self-care (01) ==
PROVIDERS: Emergency Provider Emergency Medicine; PCP Internal Medicine Gastroenterology
DX: N39.0 Urinary tract infection, site not specified (principal); B96.20 Unspecified Escherichia coli [E. coli] as the cause of diseases classified elsewhere; Z16.12 Extended spectrum beta lactamase (ESBL) resistance; E11.39 Type 2 diabetes mellitus with other diabetic ophthalmic complication; H42 Glaucoma in diseases classified elsewhere; E78.5 Hyperlipidemia, unspecified; I10 Essential (primary) hypertension; Z96.642 Presence of left artificial hip joint; Z98.1 Arthrodesis status; Z87.891 Personal history of nicotine dependence; Z98.42 Cataract extraction status, left eye; Z98.41 Cataract extraction status, right eye; Z90.710 Acquired absence of both cervix and uterus; Z79.899 Other long term (current) drug therapy; Z79.4 Long term (current) use of insulin; Z79.82 Long term (current) use of aspirin
CPT/HCPCS: 36415; 74177; 80053; 81001; 83605; 83690; 83735; 85025; 87077; 87086; 87186; 96365; 96375; 99284; A9270; J2270; J2405; J2543; J7030; Q9967